=== PATIENT | female | born 1995 | race Caucasian/White ===

== ENCOUNTER 2020-10-29 11:30 | Outpatient (CLI) | payer OTHER, SELFPAY | END 2020-10-29 11:31 | disposition home or self-care (01) | PROVIDERS: PCP Family Medicine; Visit Provider Physician Assistant | DX: N92.6 Irregular menstruation, unspecified (principal) | CPT/HCPCS: 36415; 84702 ==

== ENCOUNTER 2021-06-08 21:48 | Observation (INO) | payer OTHER, SELFPAY ==
--- NOTE | 2021-06-08 21:48 | PC.NURSE ---
This patient, Nikia Danielle, admitted to the OB room [facility] Post [facility] for observation. Patient/family oriented to hospital policies and general routines including ID bracelet, bed and alarms, visiting hours, pain management, procedures, bathroom and other care routines, personal items, smoking policy, room service/diet, and visiting hours. Patient/Family are encouraged to report perceived risks to care and to ask questions if they do not understand what they are told or what they should do.
[2021-06-08 21:58] VITALS: BP 137/97; PULSE 129
[2021-06-08 22:00] VITALS: BP 143/79; PULSE 128; BMI 31.7
--- NOTE | 2021-06-08 22:00 | PC.NURSE ---
Pt is 37 4/7 weeks. Pt states she has been vomiting all day today and has had fever throughout evening. States temp as been as high as 101. Pt denies pain. States has also had diarrhea. States baby is moving. No contractions.
[2021-06-08 22:15] VITALS: BP 131/67; PULSE 115
[2021-06-08 22:45] VITALS: BP 137/64; PULSE 111
[2021-06-08] MEDS: DEXTROSE 5%/LACTATED RINGERS 1,000 ML 999 ML IV CONT (22:47)
[2021-06-08] MEDS: FAMOTIDINE 20 MG/2 ML VIAL IV PUSH (22:48)
[2021-06-08] MEDS: ONDANSETRON INJ 4 MG/2 ML VIAL IV PUSH (22:49)
[2021-06-08 22:55] VITALS: TEMP 37.4
[2021-06-08 23:00] VITALS: BP 138/55; PULSE 103
--- NOTE | 2021-06-08 23:15 | PC.NURSE ---
Pt states she is feeling better. No further vomiting.
[2021-06-08 23:19] LABS: Basophils Percent Auto 0.2 % (0.2-1.2); Hematocrit 28.7 % (37.0-47.0); Hemoglobin 9.6 g/dL (12.0-15.0); Immature Granulocyte Absolute 0.11 K/mm3 (0.00-0.031); Immature Granulocyte Percent A 0.9 % (0-0.5); Lymphocytes Absolute Auto 1.27 K/mm3 (0.9-3.2); Lymphocytes Percent Auto 9.8 % (18.3-44.2); Mean Corpuscular HGB Conc 33.4 g/dl (32-36); Mean Corpuscular Hemoglobin 31.5 pg (26-34); Mean Corpuscular Volume 94.1 fl (80-100); Mean Platelet Volume 12.5 fl (7.4-10.4); Monocytes Percent Auto 7.9 % (2.6-8.5); Neutrophils Absolute Auto 10.5 K/mm3 (1.3-6.7); Neutrophils Percent Auto 81.2 % (45.5-73.1); Platelet Count Result 197 k/mm3 (150-375); Red Blood Count 3.05 M/mm3 (4.2-5.4); Red Cell Distribution Width 12.2 % (11.5-14.5); White Blood Count 12.9 K/mm3 (4.5-10.0)
[2021-06-08 23:34] LABS: Alanine Aminotransferase 9 U/L (4-35); Albumin Level 3.2 g/dL (3.5-5.1); Alkaline Phosphatase 184 U/L (38-126); Anion Gap 8 mmol/L (8-16); Aspartate Amino Transferase 20 U/L (14-36); Bilirubin,Total 0.5 mg/dL (0.2-1.3); Calcium 8.5 mg/dL (8.4-10.2); Carbon Dioxide 21 mmol/L (22-30); Chloride 105 mmol/L (98-107); Estimated Glomerular Filt Rate > 60; Glucose 79 mg/dL (65-105); Potassium 2.7 mmol/L (3.4-5.0); Sodium 134 mmol/L (137-145)
[2021-06-08 23:35] LABS: Blood Urea Nitrogen < 2 mg/dL (7-17)
--- NOTE | 2021-06-08 23:37 | PC.NURSE ---
Lab work including Postasium of 2.7 called to Yanci Muñoz CNM. Orders received.
[2021-06-09] MEDS: DEXTROSE 5%/LACTATED RINGERS 1,000 ML 150 ML IV CONT
[2021-06-09 00:03] VITALS: BP 91/69; PULSE 95
[2021-06-09 00:05] VITALS: TEMP 36.6
[2021-06-09 03:04] VITALS: BP 113/52; PULSE 84
[2021-06-09 03:16] VITALS: TEMP 36.1
[2021-06-09 06:15] LABS: Alanine Aminotransferase 8 U/L (4-35); Albumin Level 2.8 g/dL (3.5-5.1); Alkaline Phosphatase 153 U/L (38-126); Anion Gap 5 mmol/L (8-16); Aspartate Amino Transferase 17 U/L (14-36); Bilirubin,Total 0.3 mg/dL (0.2-1.3); Calcium 7.7 mg/dL (8.4-10.2); Carbon Dioxide 24 mmol/L (22-30); Chloride 108 mmol/L (98-107); Estimated CRCL calculation 144 ml/min; Estimated Glomerular Filt Rate > 60; Glucose 93 mg/dL (65-105); Sodium 137 mmol/L (137-145)
[2021-06-09 06:29] VITALS: BP 113/55; PULSE 79
[2021-06-09 06:30] VITALS: RESP 16; TEMP 36.1
[2021-06-09 06:46] LABS: Blood Urea Nitrogen < 2 mg/dL (7-17)
[2021-06-09 07:32] LABS: Add Urine Microscopic? NO; Appearance Urine Clear (Clear); Bilirubin Urine Negative (Negative); Blood Urine Negative (Negative); Color Urine Straw (Yellow); Glucose Urine UA Negative (Negative); Ketones Urine Negative (Negative); Leukocyte Esterase Ur Negative LEU/UL (NEGATIVE); Nitrate Urine Negative (Negative); Protein Urine Negative (Negative); Urobilinogen Urine Negative mg/dL (<2.0)
[2021-06-09 07:51] LABS: Specific Grav Ur 1.002 (1.001-1.035)
[2021-06-09] MEDS: POTASSIUM CHLORIDE 20 MEQ TABLET PO (09:50)
--- NOTE | 2021-06-11 21:19 | P.PNOB_ITS ---
OB - Triage/Final Diagnosis Visit Information Date of evaluation: 06/08/21 Reason for evaluation: other (vomiting) Comments/Additional reasons for admission: I have assessed the risk for this patient, Nikia Danielle, and determined that she would benefit from observation care. Evaluation Laboratory results: Laboratory Tests 06/08/21 06/08/21 06/09/21 22:59 22:59 05:57 WBC 12.9 H RBC 3.05 L Hgb 9.6 L Hct 28.7 L MCV 94.1 MCH 31.5 MCHC 33.4 RDW 12.2 Plt Count 197 MPV 12.5 H Immature Gran % (Auto) 0.9 H Neut % (Auto) 81.2 H Lymph % (Auto) 9.8 L [place] % (Auto) 7.9 Eos % (Auto) 0.0 Baso % (Auto) 0.2 Lymph # (Auto) 1.27 [place] # (Auto) 1.0 H Eos # (Auto) 0.0 Baso # (Auto) 0.0 Abs Immat Gran (auto) 0.11 H Absolute Neuts (auto) 10.5 H Absolute Nucleated RBC 0.0 Nucleated RBC % 0.0 Sodium 134 L 137 Potassium 2.7 L* 3.0 L Chloride 105 108 H Carbon Dioxide 21 L 24 Anion Gap 8 5 L BUN < 2 L < 2 L Creatinine 0.60 L 0.60 L Estim Creat Clear Calc Not Reportable 144 Estimated GFR > 60 > 60 Glucose 79 93 Calcium 8.5 7.7 L Total Bilirubin 0.5 0.3 AST 20 17 ALT 9 8 Alkaline Phosphatase 184 H 153 H Total Protein 6.0 L 5.0 L Albumin 3.2 L 2.8 L Urine Color Urine Appearance Urine pH Ur Specific [place] Urine Protein Urine Glucose (UA) Urine Ketones Ur Blood (Man) Urine Nitrate Urine Bilirubin Urine Urobilinogen Ur Leukocyte Esterase 06/09/21 07:20 WBC RBC Hgb Hct MCV MCH MCHC RDW Plt Count MPV Immature Gran % (Auto) Neut % (Auto) Lymph % (Auto) [place] % (Auto) Eos % (Auto) Baso % (Auto) Lymph # (Auto) [place] # (Auto) Eos # (Auto) Baso # (Auto) Abs Immat Gran (auto) Absolute Neuts (auto) Absolute Nucleated RBC Nucleated RBC % Sodium Potassium Chloride Carbon Dioxide Anion Gap BUN Creatinine Estim Creat Clear Calc Estimated GFR Glucose Calcium Total Bilirubin AST ALT Alkaline Phosphatase Total Protein Albumin Urine Color Straw Urine Appearance Clear Urine pH 8.0 Ur Specific [place] 1.002 Urine Protein Negative Urine Glucose (UA) Negative Urine Ketones Negative Ur Blood (Man) Negative Urine Nitrate Negative Urine Bilirubin Negative Urine Urobilinogen Negative Ur Leukocyte Esterase Negative
== END 2021-06-09 10:08 | disposition home or self-care (01) ==
PROVIDERS: Advanced Practice Midwife; Admitting Provider Obstetrics & Gynecology; PCP Family Medicine; Visit Provider Obstetrics & Gynecology
DX: O21.0 Mild hyperemesis gravidarum (principal); Z3A.37 37 weeks gestation of pregnancy
CPT/HCPCS: 36415; 80053; 81003; 85025; 87086; 96361; 96365; 96366; 96374; 96375; A9270; G0378; G0379; J0131; J2405; J3480; J7060; J7121

== ENCOUNTER 2021-06-24 22:00 | Inpatient (IN) | payer OTHER, SELFPAY ==
[2021-06-24] VITALS (7 sets, daily range): BP systolic 121–145; BP diastolic 69–94; PULSE 88–103; BMI 32.1
[2021-06-24] MEDS: DINOPROSTONE 10 MG VAG INSERT VAGINAL (22:42)
[2021-06-24 22:51] LABS: Basophils Percent Auto 0.2 % (0.2-1.2); Eosinophils Percent Auto 0.3 % (0-4.4); Hematocrit 28.7 % (37.0-47.0); Hemoglobin 9.8 g/dL (12.0-15.0); Immature Granulocyte Absolute 0.07 K/mm3 (0.00-0.031); Immature Granulocyte Percent A 0.6 % (0-0.5); Lymphocytes Absolute Auto 2.18 K/mm3 (0.9-3.2); Lymphocytes Percent Auto 19.1 % (18.3-44.2); Mean Corpuscular HGB Conc 34.1 g/dl (32-36); Mean Corpuscular Volume 90.8 fl (80-100); Mean Platelet Volume 12.4 fl (7.4-10.4); Monocytes Percent Auto 8.3 % (2.6-8.5); Neutrophils Absolute Auto 8.2 K/mm3 (1.3-6.7); Neutrophils Percent Auto 71.5 % (45.5-73.1); Platelet Count Result 224 k/mm3 (150-375); Red Blood Count 3.16 M/mm3 (4.2-5.4); Red Cell Distribution Width 12.4 % (11.5-14.5); White Blood Count 11.4 K/mm3 (4.5-10.0)
--- NOTE | 2021-06-24 22:58 | LDADM ---
This patient, Nikia Danielle, was admitted to Labor/Delivery/Recovery 108 on 06/24/21 at 22:00. Plans for labor, pain management and were discussed with patient. Patient/family oriented to hospital policies and general routines including ID bracelet, bed and alarms, visiting hours, pain management, procedures, bathroom and other care routines, personal items, smoking policy, room service/diet and guest tray routines, security routines, and visiting hours. Patient/Family are encouraged to report perceived risks to care and to ask questions if they do not understand what they are told or what they should do. See OBIX for further documentation.
[2021-06-25] VITALS (129 sets, daily range): BP systolic 69–156; BP diastolic 32–115; PULSE 64–164; RESP 16–18; TEMP 36.4–36.9; O2SAT 88–100
[2021-06-25 07:01] LABS: Rapid Plasma Reagin Non-Reactive (NonReactive)
--- NOTE | 2021-06-25 07:13 | WPDANESEPP ---
Anes - Eval Pre Procedure Procedure: labor epidural Date/Time: 06/25/21 07:13 Surgeon: josephine Preop Diagnosis: pain during labor Pre Op Diagnosis: Induction of Labor Patient Data Age: 25 Gender: F Height: 1.7 m Weight: 93 kg Last Vital Signs Pulse 83 06/25/21 05:48 BP 130/81 06/25/21 05:48 Allergies Allergy/AdvReac Type Severity Reaction Status Date / Time No Known Allergies Allergy Unverified 10/29/20 11:00 Home Medications Medication Instructions Recorded Confirmed Type PNV no.[id number] acid 1 tablet PO DAILY 06/09/21 06/24/21 History Laboratory Tests 06/24/21 06/24/21 06/24/21 22:41 22:41 22:41 WBC 11.4 K/mm3 H K/mm3 (4.5-10.0) RBC 3.16 M/mm3 L M/mm3 (4.2-5.4) Hgb 9.8 g/dL L g/dL (12.0-15.0) Hct 28.7 % L % (37.0-47.0) MCV 90.8 fl fl (80-100) MCH 31.0 pg pg (26-34) MCHC 34.1 g/dl g/dl (32-36) RDW 12.4 % % (11.5-14.5) Plt Count 224 k/mm3 k/mm3 (150-375) MPV 12.4 fl H fl (7.4-10.4) Immature Gran % (Auto) 0.6 % H % (0-0.5) Neut % (Auto) 71.5 % % (45.5-73.1) Lymph % (Auto) 19.1 % % (18.3-44.2) [place] % (Auto) 8.3 % % (2.6-8.5) Eos % (Auto) 0.3 % % (0-4.4) Baso % (Auto) 0.2 % % (0.2-1.2) Lymph # (Auto) 2.18 K/mm3 K/mm3 (0.9-3.2) [place] # (Auto) 1.0 K/mm3 H K/mm3 (0.1-0.6) Eos # (Auto) 0.0 K/mm3 K/mm3 (0-0.3) Baso # (Auto) 0.0 K/mm3 K/mm3 (0.0-0.1) Abs Immat Gran (auto) 0.07 K/mm3 H K/mm3 (0.00-0.031) Absolute Neuts (auto) 8.2 K/mm3 H K/mm3 (1.3-6.7) Absolute Nucleated RBC 0.0 K/mm3 K/mm3 (0.0-0.012) Nucleated RBC % 0.0 % % (0.0-0.2) RPR Non-reactive (NonReactive) Blood Type O Positive Antibody Screen Negative Patient hx anesthesia problems: none Family hx anesthesia problems: none [facility] Family History Family History Father Family history of mental disorder Depression Grandparent Family history of malignant neoplasm of cervix Family history of lung cancer Family history of malignant neoplasm of ovary Mother Family history of malignant neoplasm of cervix Family history of malignant neoplasm of ovary Social History Social History (Updated 10/29/20 @ 11:01 by Kassie Monzon CMA) Years smoked: 5 Smoking status: Former smoker Tobacco type: cigarettes Second hand tobacco smoke exposure: No Smoking end date: 06/24/21 Alcohol intake: current Alcohol use details: 5 drinks in a month Substance use: never Substance use type: does not use Additional living arrangements comments: lives w/ boyfriend Gender identity (if verbalized by the patient): Female Spiritual care concerns: No Exam Day of Procedure 06/25/21 07:13
--- NOTE | 2021-06-25 07:27 | WPDOBADMIT ---
Obstetrics - Admit Note Admission Note: record reviewed. No pertinent additions to the history and/or any subsequent changes in the physical findings that are not consistent with the expected course of the were found.IOL cervadil, start antibiotics for GBS with pitocin Additions to the history and/or subsequent changes in the physical findings follow. None.
[2021-06-25] MEDS: LACTATED RINGERS 1,000 ML 125 ML IV CONT ×2 (11:22→19:34)
[2021-06-25] MEDS: OXYTOCIN 30 UNITS/NS 500 ML 30 UNITS/500 ML BAG IV CONT (11:22)
[2021-06-25] MEDS: AMPICILLIN 2 GM/NS 100 ML 2 GM/100 ML BAG IVPB (11:22)
[2021-06-25] MEDS: AMPICILLIN 1 GM/NS 50 ML 1 GM/50 ML BAG IVPB ×3 (16:17→23:36)
--- NOTE | 2021-06-25 17:59 | PM.OBPNVD ---
OB - PN: Subj Subjective Date/time seen: 06/25/21 17:59 SVE 1-2/70/-2 AROM large amount of clear odorless fluid, anticipate vaginal delivery OB - PN: Obj Data Labs CBC & Chem 7: 06/24/21 22:41 Labs: Laboratory Results - last 24 hr 06/24/21 06/24/21 06/24/21 22:41 22:41 22:41 WBC 11.4 H RBC 3.16 L Hgb 9.8 L Hct 28.7 L MCV 90.8 MCH 31.0 MCHC 34.1 RDW 12.4 Plt Count 224 MPV 12.4 H Immature Gran % (Auto) 0.6 H Neut % (Auto) 71.5 Lymph % (Auto) 19.1 [place] % (Auto) 8.3 Eos % (Auto) 0.3 Baso % (Auto) 0.2 Lymph # (Auto) 2.18 [place] # (Auto) 1.0 H Eos # (Auto) 0.0 Baso # (Auto) 0.0 Abs Immat Gran (auto) 0.07 H Absolute Neuts (auto) 8.2 H Absolute Nucleated RBC 0.0 Nucleated RBC % 0.0 RPR Non-reactive Blood Type O Positive Antibody Screen Negative OB - PN A/P Time Spent With Patient Time: Total time spent is greater than 50% in coordination of care (as documented) at patient's floor/unit and/or counseling patient:
[2021-06-25] MEDS: TERBUTALINE SULFATE 1 MG/ML VIAL 0.25 MG SUB-Q (18:10)
[2021-06-25] MEDS: ONDANSETRON INJ 4 MG/2 ML VIAL IV PUSH (19:06)
--- NOTE | 2021-06-25 19:07 | WPDANESEFPP ---
Anes - Eval Final PreProcedure Day of Procedure 06/25/21 19:07 Patient weight: obese Heart: regular rate and rhythm Lungs: clear to auscultation Neurological: alert and oriented ASA classification: II Emergent: no Anesthetic plan: proceed Anesthesia type and monitoring: regional epidural and standard monitoring Informed Consent: The patient's anesthetic plan and its attendant risks and benefits were discussed with the patient/family/POA. Questions were solicited and answers provided to the satisfaction of the patient/family/POA.
[2021-06-26] VITALS (79 sets, daily range): BP systolic 102–142; BP diastolic 41–103; PULSE 34–142; RESP 16–18; TEMP 36.3–37.3; O2SAT 79–100
[2021-06-26] MEDS: LORATADINE 10 MG TABLET PO ×2 (02:38→19:52)
[2021-06-26] MEDS: SODIUM CHLORIDE 0.9% IV 300 ML 600 ML I-UTERINE (03:58)
[2021-06-26] MEDS: AMPICILLIN 1 GM/NS 50 ML 1 GM/50 ML BAG IVPB (04:00)
[2021-06-26] MEDS: TERBUTALINE SULFATE 1 MG/ML VIAL 0.25 MG SUB-Q (04:11)
--- NOTE | 2021-06-26 04:56 | PM.IMHP ---
H&P: HPI History of Present Illness Date/Time: 06/26/21 04:56 pt laboring and deceleration noted, CNM at bs and terbutaline given, heart tones remain unstable and dr burton called for emergency . complicated by positive GBS and has had adequate treatment Chief Complaint: decelerations Review of Systems Review of Systems: All systems reviewed & are unremarkable except as noted in HPI and below PMFSH Family History Family History Father Family history of mental disorder Depression Grandparent Family history of malignant neoplasm of cervix Family history of lung cancer Family history of malignant neoplasm of ovary Mother Family history of malignant neoplasm of cervix Family history of malignant neoplasm of ovary Social History Social History (Updated 10/29/20 @ 11:01 by Kassie Monzon [facility]) Years smoked: 5 Smoking status: Former smoker Tobacco type: cigarettes Second hand tobacco smoke exposure: No Smoking end date: 06/24/21 Alcohol intake: current Alcohol use details: 5 drinks in a month Substance use: never Substance use type: does not use Additional living arrangements comments: lives w/ boyfriend Gender identity (if verbalized by the patient): Female Spiritual care concerns: No Meds Home Medications and Allergies Home Medications Medication Instructions Recorded Confirmed Type PNV no.80-bomi-nyypa acid 1 tablet PO DAILY 06/09/21 06/24/21 History Allergies Allergy/AdvReac Type Severity Reaction Status Date / Time No Known Allergies Allergy Unverified 10/29/20 11:00 Vital Signs Vital Signs - 24 hr 06/25/21 05:48 06/25/21 11:24 06/25/21 11:32 Temperature 36.4 C Pulse Rate 83 77 Respiratory Rate Blood Pressure 130/81 114/99 H Pulse Oximetry 06/25/21 11:45 06/25/21 12:00 06/25/21 12:15 Temperature Pulse Rate 64 68 67 Respiratory Rate Blood Pressure 131/82 119/77 120/77 Pulse Oximetry 06/25/21 12:30 06/25/21 12:45 06/25/21 13:00 Temperature Pulse Rate 68 71 69 Respiratory Rate Blood Pressure 125/76 122/79 127/76 Pulse Oximetry 06/25/21 13:15 06/25/21 13:30 06/25/21 16:03 Temperature Pulse Rate 69 69 101 H Respiratory Rate Blood Pressure 128/75 126/75 141/115 H Pulse Oximetry 06/25/21 16:05 06/25/21 16:18 06/25/21 16:30 Temperature 36.6 C Pulse Rate 78 78 Respiratory Rate Blood Pressure 124/67 125/69 Pulse Oximetry 06/25/21 17:00 06/25/21 17:30 06/25/21 18:00 Temperature Pulse Rate 89 76 79 Respiratory Rate Blood Pressure 122/76 130/74 138/77 Pulse Oximetry 06/25/21 18:30 06/25/21 18:48 06/25/21 18:49 Temperature 36.9 C Pulse Rate 94 111 H Respiratory Rate 18 Blood Pressure 137/63 144/76 H Pulse Oximetry 100 06/25/21 18:53 06/25/21 18:54 06/25/21 18:55 Temperature Pulse Rate 96 103 H Respiratory Rate Blood Pressure 155/79 H 156/70 H Pulse Oximetry 100 06/25/21 18:57 06/25/21 18:58 06/25/21 19:00 Temperature Pulse Rate 100 102 H 111 H Respiratory Rate Blood Pressure 147/64 H 136/68 135/69 Pulse Oximetry 100 06/25/21 19:02 06/25/21 19:03 06/25/21 19:04 Temperature Pulse Rate 115 H 112 H Respiratory Rate Blood Pressure 126/47 L 119/46 L Pulse Oximetry 100 06/25/21 19:06 06/25/21 19:08 06/25/21 19:10 Temperature Pulse Rate 100 108 H 90 Respiratory Rate Blood Pressure 115/42 L 101/53 L 121/55 L Pulse Oximetry 100 06/25/21 19:12 06/25/21 19:13 06/25/21 19:14 Temperature Pulse Rate 88 99 Respiratory Rate Blood Pressure 127/60 112/63 Pulse Oximetry 100 06/25/21 19:16 06/25/21 19:18 06/25/21 19:19 Temperature Pulse Rate 89 Respiratory Rate Blood Pressure 120/62 Pulse Oximetry 100 96 06/25/21 19:21 06/25/21 19:22 06/25/21 19:23 Temperature Pulse Rate 98 100
--- NOTE | 2021-06-26 05:18 | P.OP_ITS ---
Procedure Note - Detailed Date of Procedure 06/26/21 Pre-op Diagnosis Induction of Labor, Nonreassuring FHT's Post-op Diagnosis same Procedure Performed Low-transverse section Surgeon Anusha Braxton MD Anesthesia spinal Indications Distress Findings Normal gestational maternal anatomy, average size , normal Apgars. Meconium Description of Procedure The patient was taken the operating room. She was prepped and draped in dorsal supine position with a leftward tilt. This was done after spinal anesthetic was applied. A low-transverse skin incision was made and carried down till of the fascia with the knife. The fascial incision was made with the knife. The fascial incision was extended laterally with Link scissors. The fascia was tented upward superiorly and inferiorly the rectus muscles were dissected off bluntly. The rectus muscles were the midline. The preperitoneal fat and peritoneum were dissected open bluntly at the superior aspect of the rectus muscles. The peritoneal incision was extended superior and inferior with good position of bladder. The uterine incision was made with a scalpel down to the level of the amniotic cavity. The amniotic cavity was entered bluntly. The was delivered. The cord was clamped and cut and the infant was handed off to waiting pediatric staff. Cord bloods were obtained. The placenta was removed manually. The uterus was exteriorized. The uterus was cleared of all clots, debris and membranes. The uterus was closed in 0 Vicryl running lock fashion. An imbricating over a was placed along the incis ion line as well. The uterus was returned to the abdomen. The gutters were cleared of all clots and debris. The fascia was closed with 0 Vicryl running fashion. The subcutaneous tissue was irrigated pinpoint bleeders were cauterized. The skin was closed with subcuticular absorbable monica. The skin incision line was covered with glue. The patient tolerated the procedure well. She has taken recovery room in stable condition. Sponge lap and needle counts were correct x2. Urine Output 790 Pathology yes Complications No immediate complications Condition stable Disposition PACU
--- NOTE | 2021-06-26 05:25 | PM.IMHP ---
H&P: HPI History of Present Illness Date/Time: 06/26/21 05:25This patient is a 26 year old female prior labored until she was complete. The and then she began to have nonreassuring heart tones. She had a prolonged D cell was taken to the operating room for stat delivery. Chief Complaint: Term Review of Systems Constitutional: Constitutional: Reports no additional constitutional complaints, Denies fatigue, Denies headache(s), Denies lethargy and Denies weakness Eyes: Eyes: Reports no additional eye complaints, Denies blurry vision and Denies photophobia ENT: Reports as per HPI, Denies headache(s) and Denies neck pain Cardiovascular: Cardiovascular: Denies chest pain, Denies diaphoresis, Denies leg edema, Denies palpitations and Denies dyspnea Respiratory: Respiratory: Denies hemoptysis, Denies dyspnea and Denies wheezing Gastrointestinal: Gastrointestinal: Denies abdominal pain, Denies melena, Denies bloating, Denies hematochezia, Denies nausea and Denies vomiting Genitourinary: Genitourinary: Reports no additional female genitourinary complaints Musculoskeletal: Musculoskeletal: Denies joint swelling, Denies neck pain, Denies numbness and Denies stiffness Neurologic: Denies Abnormal speech present, Denies confusion, Denies headache(s), Denies numbness and Denies weakness Psychiatric: Psychiatric: Denies anxiety, Denies confusion, Denies depression, Denies homicidal ideation and Denies suicidal ideation Endocrine: Endocrine: Denies fatigue and Denies palpitations Allergic/Immunologic: Allergic/Immunologic: Denies wheezing [facility] Family History Family History Father Family history of mental disorder Depression Grandparent Family history of malignant neoplasm of cervix Family history of lung cancer Family history of malignant neoplasm of ovary Mother Family history of malignant neoplasm of cervix Family history of malignant neoplasm of ovary Social History Social History (Updated 10/29/20 @ 11:01 by Kassie Monzon CMA) Years smoked: 5 Smoking status: Former smoker Tobacco type: cigarettes Second hand tobacco smoke exposure: No Smoking end date: 06/24/21 Alcohol intake: current Alcohol use details: 5 drinks in a month Substance use: never Substance use type: does not use Additional living arrangements comments: lives w/ boyfriend Gender identity (if verbalized by the patient): Female Spiritual care concerns: No Meds Home Medications and Allergies Home Medications Medication Instructions Recorded Confirmed Type PNV no.09-[id number] acid 1 tablet PO DAILY 06/09/21 06/24/21 History Allergies Allergy/AdvReac Type Severity Reaction Status Date / Time No Known Allergies Allergy Unverified 10/29/20 11:00 Vital Signs Vital Signs - 24 hr 06/25/21 05:48 06/25/21 11:24 06/25/21 11:32 Temperature 97.6 F Pulse Rate 83 77 Respiratory Rate Blood Pressure 130/81 114/99 H Pulse Oximetry 06/25/21 11:45 06/25/21 12:00 06/25/21 12:15 Temperature Pulse Rate 64 68 67 Respiratory Rate Blood Pressure 131/82 119/77 120/77 Pulse Oximetry 06/25/21 12:30 06/25/21 12:45 06/25/21 13:00 Temperature Pulse Rate 68 71 69 Respiratory Rate Blood Pressure 125/76 122/79 127/76 Pulse Oximetry 06/25/21 13:15 06/25/21 13:30 06/25/21 16:03 Temperature Pulse Rate 69 69 101 H Respiratory Rate Blood Pressure 128/75 126/75 141/115 H Pulse Oximetry 06/25/21 16:05 06/25/21 16:18 06/25/21 16:30 Temperature 98 F Pulse Rate 78 78 Respiratory Rate Blood Pressure 124/67 125/69 Pulse Oximetry 06/25/21 17:00 06/25/21 17:30 06/25/21 18:00 Temperature Pulse Rate 89 76 79 Respiratory Rate Blood Pressure 122/76 130/74 138/77 Pulse Oximetry 06/25/21 18:30 06/25/21 18:48 06/25/21 18:49 Temperature 98.4 F Pulse Rate 94 111
[2021-06-26] MEDS: fentaNYL CITRATE INJ (*CRX) 100 MCG/2 ML VIAL 25 MCG IV PUSH (05:59)
[2021-06-26] MEDS: OXYTOCIN 30 UNITS/NS 500 ML 30 UNITS/500 ML BAG 125 UNITS IV CONT (05:59)
[2021-06-26] MEDS: DEXTROSE 5%/0.45% SOD CHL 1,000 ML 125 ML IV CONT (10:25)
--- NOTE | 2021-06-26 10:55 | PC.NURSE ---
Consult with pt., mother reports she wishes to pump and bottle feed. Offered assist mother will call when ready.
--- NOTE | 2021-06-26 15:46 | PC.NURSE ---
0805 Pt admitted to room 288 from Labor and delivery after primary delivery of viable male infant today at [address] Braxton. Mother is a and is choosing to pump and bottle feed . FOB present. Couple oriented to room, staffing and procedures; admission folder reviewed. Pt's VSS and assessment WNL.
[2021-06-26] MEDS: POLYSACCHARIDE IRON COMPLEX 150 MG CAPSULE PO (17:56)
[2021-06-26] MEDS: DOCUSATE SODIUM 100 MG CAPSULE PO (17:56)
--- NOTE | 2021-06-26 19:34 | PC.NURSE ---
1800 pt given Nubain 2mg IVP twice today for c/o itching with good relief reported.
[2021-06-26] MEDS: HYDROcodone/acetaminophen (*CRX) 5-325 MG TABLET 1 TAB PO (19:52)
[2021-06-26] MEDS: IBUPROFEN 600 MG TABLET PO (19:52)
[2021-06-27] VITALS: BP 114/63; PULSE 89; RESP 16; TEMP 36.2; O2SAT 99
[2021-06-27 05:20] LABS: Basophils Percent Auto 0.3 % (0.2-1.2); Eosinophils Percent Auto 0.2 % (0-4.4); Hematocrit 23.7 % (37.0-47.0); Hemoglobin 7.6 g/dL (12.0-15.0); Immature Granulocyte Absolute 0.08 K/mm3 (0.00-0.031); Immature Granulocyte Percent A 0.6 % (0-0.5); Lymphocytes Percent Auto 17.2 % (18.3-44.2); Mean Corpuscular HGB Conc 32.1 g/dl (32-36); Mean Corpuscular Hemoglobin 30.9 pg (26-34); Mean Corpuscular Volume 96.3 fl (80-100); Mean Platelet Volume 12.3 fl (7.4-10.4); Monocytes Absolute Auto 1.2 K/mm3 (0.1-0.6); Neutrophils Absolute Auto 9.7 K/mm3 (1.3-6.7); Neutrophils Percent Auto 72.7 % (45.5-73.1); Platelet Count Result 208 k/mm3 (150-375); Red Blood Count 2.46 M/mm3 (4.2-5.4); Red Cell Distribution Width 12.8 % (11.5-14.5); White Blood Count 13.3 K/mm3 (4.5-10.0)
--- NOTE | 2021-06-27 07:38 | P.PNOB_ITS ---
OB - PN: Subj Subjective Date/time seen: 06/27/21 07:38 Patient comments: no complaints baby status: doing well OB - PN: Obj Data Labs CBC & Chem 7: 06/27/21 04:54 Labs: Laboratory Results - last 24 hr 06/27/21 04:54 WBC 13.3 H RBC 2.46 L Hgb 7.6 L Hct 23.7 L MCV 96.3 D MCH 30.9 MCHC 32.1 RDW 12.8 Plt Count 208 MPV 12.3 H Immature Gran % (Auto) 0.6 H Neut % (Auto) 72.7 Lymph % (Auto) 17.2 L [place] % (Auto) 9.0 H Eos % (Auto) 0.2 Baso % (Auto) 0.3 Lymph # (Auto) 2.30 [place] # (Auto) 1.2 H Eos # (Auto) 0.0 Baso # (Auto) 0.0 Abs Immat Gran (auto) 0.08 H Absolute Neuts (auto) 9.7 H Absolute Nucleated RBC 0.0 Nucleated RBC % 0.0 OB - PN A/P Plan day: 1 Plan: routine care Time Spent With Patient Time: Total time spent is greater than 50% in coordination of care (as documented) at patient's floor/unit and/or counseling patient: Review of Systems Review of Systems: All systems reviewed & are unremarkable except as noted in HPI and below Exam Narrative: Incision CDI Const: General: cooperative and healthy appearing Limitations: no limitations Psych: Affect: normal affect Attitude: cooperative Thought process: Normal thought process present Thought content: Yes Normal thought content pr esent Insight: Good insight present (Psych) Judgement: Good judgement present (Psych)
--- NOTE | 2021-06-27 08:11 | WPDANLDNPN2 ---
Anes-Prog Note L&D-Neuraxial Date/Time: 06/27/21 08:11 Neuraxial medications: epidural PF morphine Opiod-related complaints: none Patient feedback: Patient satisfied with post-operative pain management.
--- NOTE | 2021-06-27 08:12 | WPDANLDPN2 ---
Anes-Prog Note L&D Date/Time: 06/27/21 08:12 Comfortable throughout: labor, delivery and section Neuraxial method: epidural Epidural/Spinal procedure site: clean & non-tender Neuro status: Neuro function grossly intact. Cardiovascular status: normal Respiratory status: normal Airway patency: baseline Mental status: baseline Post-Op hydration status: normal Vital Signs: Last Vital Signs Temp 36.2 C L 06/27/21 00:00 Pulse 89 06/27/21 00:00 Resp 16 06/27/21 00:00 BP 114/63 06/27/21 00:00 Pulse Ox 99 06/27/21 00:00 Pain score (VAS): 0 I/O: Intake & Output 06/26/21 06/27/21 06/27/21 23:59 07:59 15:59 Intake Total 4175 Output Total 1500 Balance 2675 Post-procedural complaints: none Patient feedback: Patient satisfied with anesthetic care.
[2021-06-27 08:25] VITALS: BP 140/76; PULSE 101; RESP 16; TEMP 36.9; O2SAT 100
[2021-06-27] MEDS: IBUPROFEN 600 MG TABLET PO ×3 (10:05→23:22)
[2021-06-27] MEDS: MULTIVIT/MIN/PREN/FOL AC/IRON TABLET 1 TAB PO (10:05)
[2021-06-27] MEDS: POLYSACCHARIDE IRON COMPLEX 150 MG CAPSULE PO ×2 (10:06→16:27)
[2021-06-27] MEDS: HYDROcodone/acetaminophen (*CRX) 5-325 MG TABLET 1 TAB PO ×3 (10:06→23:22)
[2021-06-27] MEDS: DOCUSATE SODIUM 100 MG CAPSULE PO ×2 (10:06→16:28)
[2021-06-27] MEDS: TETANUS,DIPHTHERIA,AC PERTUSSIS ADULT (0.5 ML) BOOSTRIX IM (16:29)
[2021-06-27 20:15] VITALS: BP 130/83; PULSE 100; RESP 18; TEMP 36.4; O2SAT 100
--- NOTE | 2021-06-27 20:15 | PC.NURSE ---
Patient viewed the discharge video Mother & Baby Care, The First Two Weeks online. Patient was given the opportunity and encouraged to ask questions. Patient verbalized understanding of information shared and has been given the mother/baby guide for home reference.
[2021-06-27] MEDS: SIMETHICONE 80 MG TAB.CHEW PO (23:22)
[2021-06-28] MEDS: HYDROcodone/acetaminophen (*CRX) 5-325 MG TABLET 1 TAB PO ×2 (05:36→10:44)
[2021-06-28] MEDS: SIMETHICONE 80 MG TAB.CHEW PO ×2 (05:36→10:44)
[2021-06-28] MEDS: IBUPROFEN 600 MG TABLET PO (05:38)
[2021-06-28 06:01] LABS: Hematocrit 22.1 % (37.0-47.0); Hemoglobin 7.1 g/dL (12.0-15.0)
[2021-06-28 08:08] VITALS: BP 121/73; PULSE 95; RESP 18; TEMP 36.8
[2021-06-28] MEDS: MULTIVIT/MIN/PREN/FOL AC/IRON TABLET 1 TAB PO (10:43)
[2021-06-28] MEDS: POLYSACCHARIDE IRON COMPLEX 150 MG CAPSULE PO (10:43)
[2021-06-28] MEDS: DOCUSATE SODIUM 100 MG CAPSULE PO (10:44)
--- NOTE | 2021-06-28 12:55 | PM.OBPNVD ---
OB - PN: Subj Subjective Date/time seen: 06/28/21 12:55 Patient comments: no complaints, pain well controlled, tolerating diet and flatus present OB - PN: Obj Data Labs CBC & Chem 7: 06/28/21 05:44 Labs: Laboratory Results - last 24 hr 06/28/21 05:44 Hgb 7.1 L Hct 22.1 L OB - PN A/P Plan day: 1 Comments: Post Op LTCS - no problems, routine recovery Time Spent With Patient Time: Total time spent is greater than 50% in coordination of care (as documented) at patient's floor/unit and/or counseling patient: Exam Const: General: cooperative, healthy appearing, comfortable and no acute distress Resp: Auscultation: no crackles, no rales, no rhonchi and no wheezes Cardio: Rhythm: regular rhythm Heart sounds: no click and no murmurs GI: Inspection: non-distended Auscultation: normal bowel sounds Extrem: General: normal to inspection, no pedal edema and no calf tenderness
--- NOTE | 2021-06-28 12:56 | PM.OBDSVD ---
DS: Admitting Diagnosis Admitting Diagnosis term DS: Discharge Diagnosis Discharge Diagnosis (1) heart rate decelerations affecting management of mother: Code(s): O36.8390 - Maternal care for abnormalities of the heart rate or rhythm, unspecified trimester, not applicable or unspecified Status: Acute (2) Term : Code(s): Z34.90 - Encounter for supervision of normal , unspecified, unspecified trimester Status: Acute OB - DS: Summary OB Procedures : None OB Procedures Intrapartum: OB Procedures: : None Peripartum Data Procedures: Procedures Operation Date: 06/26/21 04:25 Actual Procedure Side Surgeon p Section Bilateral Anusha Braxton MD Time Spent with Patient Time attestation: Total time spent providing and/or coordinating discharge services: DS: Data Data Completed and Pending Pending studies at discharge: Pending at discharge 06/26/21 05:08 Surgical [PTH] Routine Labs on day of discharge: Labs from last 24 hours 06/28/21 05:44 Hgb 7.1 L Hct 22.1 L Discharge Plan Discharge Discharging Clinician: Anusha Braxton Patient Disposition: Home, Self-Care Activity: pelvic rest Diet: regular Patient Instructions: Antibiotic Form, How to Stop Smoking (DC) Stand Alone Forms: General Discharge Information Follow-up/Referrals: Anusha Braxton MD [Physician] - Discharge Medications: New hydrocodone-acetaminophen 5-325 mg tablet 1 - 2 tablet PO Q4H PRN (Reason: pain) Qty: 25 RF: 0 Continued PNV no.36-sydd-rqfuw acid 30-975 mg-mcg Tablet 1 tablet PO DAILY RF: 0 Date of admission: 06/24/21 22:00 Primary Care Provider: Megan Rock Admitting Provider: Anusha Braxton Attending physician on admission: Anusha Braxton Condition: Stable
[2021-06-30 10:01] VITALS: BP 130/76; PULSE 87; RESP 16; TEMP 36.8; O2SAT 99
== END 2021-06-28 13:57 | disposition home or self-care (01) | DRG 788 ==
LOC: ANHLDR 06-25 09:36 → ANHOB2 06-26 08:11
PROVIDERS: Advanced Practice Midwife; Admitting Provider Obstetrics & Gynecology; PCP Family Medicine; Visit Provider Obstetrics & Gynecology
PROC: (CPT 59514; principal; 2021-06-26 04:25)
DX: O99.824 Streptococcus B carrier state complicating childbirth (principal); Z37.0 Single live birth; Z3A.40 40 weeks gestation of pregnancy; O36.8330 Maternal care for abnormalities of the fetal heart rate or rhythm, third trimester, not applicable or unspecified; O77.0 Labor and delivery complicated by meconium in amniotic fluid; O99.214 Obesity complicating childbirth; E66.9 Obesity, unspecified
CPT/HCPCS: 36415; 85014; 85018; 85025; 86592; 86850; 86900; 86901; 88307; 90715; A9270; J0131; J0290; J0330; J0690; J2274; J2300; J2370; J2405; J2590; J2704; J3010; J3105; J7030; J7120

== ENCOUNTER 2022-01-28 11:00 | Emergency (ER) | payer OTHER, SELFPAY ==
[2022-01-28 11:20] VITALS: BP 100/60; PULSE 92; RESP 16; TEMP 36.1; O2SAT 99
--- NOTE | 2022-01-28 12:00 | ED.SKABFB ---
HPI - Skin/Abscess/Foreign Bdy General Chief complaint: Skin/Abscess/Foreign Body Stated complaint: Rash,Numbness Bilateral Hands Time Seen by Provider: 01/28/22 12:01 Source: patient Mode of arrival: ambulatory Limitations: no limitations History of Present Illness HPI narrative: 26-year-old female presented for complaint of rash to wrists, torso and hairline, onset 2 days ago. She states the rash flares up and comes down. She has used an [id number] itching cream. Endorses a history of sensitive skin and has similar experiences in the past but not as bad as this 1. She endorses changing laundry soap recently which has caused skin reaction in the past. She denies lip, tongue, throat swelling, difficulty breathing or wheezing, nausea, vomiting, fever or chills. She does endorse bilateral wrist numbness radiating to the hands intermittently since onset. Also endorses having carpal tunnel during . Denies numbness presently. She has a appointment with her PCP tomorrow. MD complaint: rash Related Data Allergies Allergy/AdvReac Type Severity Reaction Status Date / Time No Known Allergies Allergy Verified 01/28/22 11:33 Review of Systems Review of Systems: CONSTITUTIONAL: Denies body aches, fever, chills, or sweats. EYES: Denies visual changes, redness, or discharge. ENT: Denies rhinorrhea, congestion, sore throat, or otalgia. CARDIOVASCULAR: Denies chest pain, palpitations, or edema. RESPIRATORY: Denies cough or dyspnea. GASTROINTESTINAL: Denies abdominal pain, nausea, vomiting, or diarrhea. GENITOURINARY: Denies dysuria or hematuria. SKIN: endorses rash MUSCULOSKELETAL: Denies back pain, joint pain, or myalgia. NEUROLOGIC: endorses wrist/hand numbness PSYCH: Denies depression or anxiety. [facility] Family History Family History Father Family history of mental disorder Depression Grandparent Family history of malignant neoplasm of cervix Family history of lung cancer Family history of malignant neoplasm of ovary Mother Family history of malignant neoplasm of cervix Family history of malignant neoplasm of ovary Social History Social History Years smoked: 5 Smoking status: Former smoker Tobacco type: cigarettes Second hand tobacco smoke exposure: No Smoking end date: 06/24/21 Alcohol intake: current Alcohol use details: 5 drinks in a month Substance use: never Substance use type: does not use Additional living arrangements comments: lives w/ boyfriend Gender identity (if verbalized by the patient): Female Spiritual care concerns: No Comments At time of signature, I have reviewed and agree with nursing past medical, surgical, social and family history unless otherwise noted. Please see nursing chart for further information. There is no relevant family history pertinent to the presenting complaint Exam Narrative: GENERAL: Well-appearing, well-nourished, and in no acute distress. HEAD: Normocephalic, atraumatic. EYES: PERRLA, conjunctivae clear, and EOMI. ENT: Mucous membranes moist. Oropharynx without edema, erythema or lesions. NECK: Supple. No lymphadenopathy CHEST: Clear to auscultation. No respiratory distress. HEART: Regular rate and rhythm. SKIN: Warm, dry. 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 PSYCH: Normal mood and affect Course Course Emergency Course: Patient is aware of diagnosis, understands and agrees to treatment plan. Anticipatory guidance given. Patient agrees to follow-up as directed and is aware of reasons to seek care at the emergency department. Portions of this record may have been created with voice recognition software Level of Care: Express Car
== END 2022-01-28 12:22 | disposition home or self-care (01) ==
PROVIDERS: Emergency Provider Nurse Practitioner Family; PCP Family Medicine
DX: L25.9 Unspecified contact dermatitis, unspecified cause (principal); Z87.891 Personal history of nicotine dependence
CPT/HCPCS: 99213; G0463

== ENCOUNTER 2024-04-22 18:47 | Emergency (ER) | payer OTHER, SELFPAY ==
[2024-04-22 18:56] VITALS: BP 119/63; PULSE 90; RESP 18; TEMP 37.2; O2SAT 100
[2024-04-22 18:58] VITALS: BP 119/63; PULSE 90; RESP 18; TEMP 37.2; O2SAT 100
--- NOTE | 2024-04-22 19:12 | ED.DENTAL ---
HPI - Dental/Oral General Chief complaint: Dental/Oral Stated complaint: Tooth Pain/Infection Time Seen by Provider: 04/22/24 19:03 Source: patient and RN notes reviewed Mode of arrival: ambulatory Limitations: no limitations History of Present Illness HPI Narrative: Patient presents today complaining of pain to the upper gumline x2 days, with an abscess that was noted by patient's mother today. States she woke up with swelling to the right upper jaw line today as well. Currently rates her pain 8/10 and has been taking ibuprofen with mild relief. She has an appointment with an emergency dentist in 3 days. Related Data Allergies Allergy/AdvReac Type Severity Reaction Status Date / Time No Known Allergies Allergy Verified 04/22/24 18:57 Review of Systems Review of Systems: CONSTITUTIONAL: Denies body aches, fever, chills, or sweats. EYES: Denies visual changes, redness, or discharge. ENT: Denies rhinorrhea, congestion, sore throat, or otalgia.+ tooth pain and gum swelling CARDIOVASCULAR: Denies chest pain, palpitations, or edema. RESPIRATORY: Denies cough or dyspnea. GASTROINTESTINAL: Denies abdominal pain, nausea, vomiting, or diarrhea. GENITOURINARY: Denies dysuria or hematuria. SKIN: Denies rash, itching, or wounds. MUSCULOSKELETAL: Denies back pain, joint pain, or myalgia. NEUROLOGIC: Denies headache, numbness, tingling, or weakness. PSYCH: Denies depression or anxiety. [facility] Past Medical History Medical History Contact dermatitis heart rate decelerations affecting management of mother LINH (generalized anxiety disorder) MDD (major depressive disorder), recurrent episode, moderate Missed period Ovarian dysfunction Positive urine test Post-op pain Term Family History Family History Father Family history of mental disorder Depression Grandparent Family history of malignant neoplasm of cervix Family history of lung cancer Family history of malignant neoplasm of ovary Mother Family history of malignant neoplasm of cervix Family history of malignant neoplasm of ovary Social History Social History Social History: Years smoked: 5 Smoking status: Smoker, status unknown (Pt vapes) Tobacco type: cigarettes and e-cigarettes/vaping Second hand tobacco smoke exposure: No Smoking end date: 06/24/21 Additional smoking assessment comments: Pt vapes Alcohol intake: current Alcohol use details: Rarely Substance use: never Substance use type: does not use Lack of Transportation: No Lack of Food: Never True Current Housing: I Have Housing Concerned About Future Housing: No Difficulty Paying Gas/Electric Bills: No Difficulty Paying for Meds: No Currently Unemployed: No Education: High School Diploma/GED Difficulty w/ Childcare or Family Care: No Living arrangements: with family Occupation/Education: occupation 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 Please see nursing chart for further information. There is no relevant family history pertinent to the presenting complaint Exam Narrative: GENERAL: Well-appearing, well-nourished, and in no acute distress. HEAD: Normocephalic, atraumatic. EYES: EOMI. No redness or drainage. Conjunctivae normal. ENT: Mucous membranes pink and moist. Large periapical abscess above tooth 7. Mild swelling to the adjacent upper jaw line. No trismus. Obvious cavity to the medial portion of tooth
== END 2024-04-22 19:15 | disposition home or self-care (01) ==
PROVIDERS: Emergency Provider Nurse Practitioner; PCP Family Medicine
DX: K04.7 Periapical abscess without sinus (principal); F17.290 Nicotine dependence, other tobacco product, uncomplicated
CPT/HCPCS: 99213; G0463

== ENCOUNTER 2024-12-03 17:57 | Observation (INO) | payer OTHER, SELFPAY ==
[2024-12-03] VITALS (9 sets, daily range): BP systolic 124–125; BP diastolic 72; PULSE 90–98; RESP 19; TEMP 37.2; O2SAT 99–100
--- NOTE | 2024-12-03 18:27 | ED_ITS ---
HPI - General Chief complaint: Vaginal Bleeding <FAITH Carr Last Filed: 12/03/24 23:19> Stated complaint: miscarriage <FAITH Carr Last Filed: 12/03/24 23:19> Time Seen by Provider: 12/03/24 18:06 <FAITH Carr Last Filed: 12/03/24 23:19> Source: patient <FAITH Carr Last Filed: 12/03/24 23:19> Mode of arrival: ambulatory <FAITH Carr Last Filed: 12/03/24 23:19> Limitations: no limitations <FAITH Carr Last Filed: 12/03/24 23:19> History of Present Illness HPI Narrative: Patient is a 29 y/o female who presents to the ED with c/o miscarriage. Patient reports she was approx 14 weeks gestation. Has been seeing Dr. Braxton for this d/t hx of subchorionic hematoma in 1st trimester. Had confirmed IUP. . Began having some cramping in her lower abdomen last night into today. Around 445pm began having vaginal bleeding and passed the fetus at home. States she cut the umbilical cord at home. She is concerned as she has not passed the placenta yet. She is still bleeding and has passed some small clots, denies significant pain at this time. Denies N/V, fevers. <FAITH Carr Last Filed: 12/03/24 23:19> Related Data Allergies/Adverse reactions: Allergies Allergy/AdvReac Type Severity Reaction Status Date / Time amoxicillin Allergy Severe Hives Verified 05/02/24 15:18 <FAITH Carr Last Filed: 12/03/24 23:19> Review of Systems 2 Review of Systems: All systems reviewed & are unremarkable except as noted in HPI. <FAITH Carr Last Filed: 12/03/24 23:19> All systems reviewed & are unremarkable except as noted in HPI and below < FAITH Carr Last Filed: 12/03/24 23:19> PMFSH Past Medical History Medical History: Medical History Ovarian dysfunction MDD (major depressive disorder), recurrent episode, moderate LINH (generalized anxiety disorder) Contact dermatitis Post-op pain Term heart rate decelerations affecting management of mother Positive urine test Missed period <Mercy Richards PA-C - Last Filed: 12/03/24 23:19> Family History Family History: Family History Father Family history of mental disorder Depression Grandparent Family history of malignant neoplasm of cervix Family history of lung cancer Family history of malignant neoplasm of ovary Mother Family history of malignant neoplasm of cervix Family history of malignant neoplasm of ovary <Mercy Richards PA-C - Last Filed: 12/03/24 23:19> Social History Social History: Social History Social History: Years smoked: 5 Smoking status: Never smoker Tobacco type: cigarettes and e-cigarettes/vaping Second hand tobacco smoke exposure: No Smoking end date: 06/24/21 Additional smoking assessment comments: Pt vapes Alcohol intake: current Alcohol use details: Rarely Substance use: never Substance use type: does not use Do You Feel Safe in your Home?: Yes Lack of Transportation: No Lack of Food: Never True Current Housing: I Have Housing Concerned About Future Housing: No Difficulty Paying Gas/Electric Bills: No Difficulty Paying for Meds: No Currently Unemployed: No Education: High School Diploma/GED Difficulty w/ Childcare or Family Care: No Living arrangements: with family Occupation/Education: occupation 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 HEAD: Normocephalic, atraumatic. RESPIRATORY: Airway patent, respirations nonlabored. Clear to auscultation bilaterally, no rales, rhonchi, wheezing. CARDIOVASCULAR: Regular rate and rhythm without murmurs, rubs, or gallops. ABDOMINAL: Soft, no significant tenderness, nondistended. Normoactive BS. PELVIC: Normal external genitalia. Dark red vaginal bleeding coming from vaginal vault, small clots noted. No obvious tissue. Discomfort reported with speculum exam and was deferred. MUSCULOSKELETAL: Moves all extremities. No gross deformities. SKIN: Warm, dry, normal color. NEURO: A&O X3. Speech clear. PSYCHIATRIC: Tearful. Normal interaction. <Mercy Richards PA-C - Last Filed: 12/03/24 23:19> Course MANAGER OF CHANGE/PA Physician Supervision Patient's HPI, Exam, and MDM were reviewed and I agreed with the workup and disposition done in the emergency department by the MLP. I was available for consultation, but was not directly involved with patient's care nor did I evaluate the patient. <Brandon Tomlin MD - Last Filed: 12/03/24 20:47> Vital Signs Vital signs: Vital Signs Temperature 98.9 F 12/03/24 20:20 Respiratory Rate 12/03/24 20:20 Temperature 98.9 F 12/03/24 20:20 Pulse Rate 92 12/03/24 20:30 Respiratory Rate 19 12/03/24 20:20 Blood Pressure 125/72 12/03/24 20:30 Pulse Oximetry 100 12/03/24 20:43 Oxygen Delivery Room Air 12/03/24 21:00 <Mercy Richards PA-C - Last Filed: 12/03/24 23:19> Vital Signs Temperature 98.9 F 12/03/24 20:20 Respiratory Rate 12/03/24 20:20 Temperature 98.9 F 12/03/24 20:20 Pulse Rate 92 12/03/24 20:30 Respiratory Rate 12/03/24 20:20 Blood Pressure 125/72 12/03/24 20:30 Pulse Oximetry 100 12/03/24 20:43 Oxygen Delivery Room Air 12/03/24 21:00 <Brandon Tomlin MD - Last Filed: 12/03/24 20:47> MDM - OB/Uterine Contractions MDM Narrative Medical decision making narrative: Patient presented to ED with spontaneous miscarriage, was approximately 14 weeks gestation, . Passed the fetus at home and brought this into the ED. States she has not passed the placenta yet. Vital signs are stable upon arrival. Patient mildly uncomfortable appearing, anxious, tearful. Performed brief pelvic exam which revealed some clots, no obvious /placental tissue. Fetus was sent to pathology for further evaluation. Discussed case with WHITNEY Stevens on-call for [facility], if unable to obtain ultrasound at this time, recommended admission for observation, ultrasound in the morning to rule out retained POC. Recommended giving 800 mcg of Cytotec vaginally now to help facilitate passage. Discussed these recommendations with patient. Patient is in agreement with plan and admission. Will be admitted to L&D. Laboratory studies with white blood cell count of 14.5. H&H is stable. Beta hCG is 41,390. Patient's blood type is O positive, no indication for RhoGAM. < Mercy Richards PA-C - Last Filed: 12/03/24 23:19> Medical Records Attestation: I reviewed the patient's medical records. <Mercy Richards PA-C - Last Filed: 12/03/24 23:19> Lab Data Attestation: I reviewed the patient's lab results. <Mercy Richards PA-C - Last Filed: 12/03/24 23:19> Result diagrams: 12/03/24 18:47 12/03/24 18:47 <Mercy Richards PA-C - Last Filed: 12/03/24 23:19> Labs: Lab Results 12/03/24 Range/Units 18:47 WBC 14.5 H (4.5-10.0) K/mm3 RBC 3.74 L (4.2-5.4) M/mm3 Hgb 11.7 L D (12.0-15.0) g/dL Hct 33.8 L (37.0-47.0) % MCV 90.4 (80-100) fl MCH 31.3 (26-34) pg MCHC 34.6 (32-36) g/dl RDW 12.5 (11.5-14.5) % Plt Count 205 (150-375) k/mm3 MPV 12.2 H (7.4-10.4) fl Immature Gran % (Auto) 0.3 (0-0.5) % Neut % (Auto) 81.3 H (45.5-73.1) % Lymph % (Auto) 12.1 L (18.3-44.2) % Park % (Auto) 5.8 (2.6-8.5) % Eos % (Auto) 0.2 (0-4.4) % Baso % (Auto) 0.3 (0.2-1.2) % Lymph # (Auto) 1.76 (0.9-3.2) K/mm3 Park # (Auto) 0.8 H (0.1-0.6) K/mm3 Eos # (Auto) 0.0 (0-0.3) K/mm3 Baso # (Auto) 0.1 (0.0-0.1) K/mm3 Abs Immat Gran (auto) 0.04 H (0.00-0.031) K/mm3 Absolute Neuts (auto) 11.8 H (1.3-6.7) K/mm3 Absolute Nucleated RBC 0.000 (0.0-0.012) K/mm3 Nucleated RBC % 0.0 (0.0-0.2) % PT 13.2 (11.1-14.7) Seconds INR 1.0 APTT 24.1 (22.3-36.8) Seconds Sodium 134 L (137-145) mmol/L Potassium 3.6 (3.4-5.0) mmol/L Chloride 108 H (98-107) mmol/L Carbon Dioxide 23 (22-30) mmol/L Anion Gap 3 L (4-12) mmol/L BUN 8 D (7-17) mg/dL Creatinine 0.60 L (0.7-1.0) mg/dL Estim Creat Clear Calc 131 ml/min Estimated GFR > 60 (59 - ) Glucose 92 (65-110) mg/dL Calcium 8.9 (8.4-10.2) mg/dL Total Bilirubin 0.4 (0.2-1.3) mg/dL AST 20 (14-36) U/L ALT 10 (6-35) U/L Alkaline Phosphatase 67 (38-126) U/L Total Protein 7.0 (6.3-8.2) g/dL Albumin 3.9 (3.5-5.1) g/dL Beta HCG, Quant 22845.00 mIU/ML Blood Type O Positive Antibody Screen TNP Baby's Blood Type TNP Baby's MAYANK TNP Doses of RhIg Required 0 <Mercy Richards PA-C - Last Filed: 12/03/24 23:19> Lab Results 12/03/24 Range/Units 18:47 WBC 14.5 H (4.5-10.0) K/mm3 RBC 3.74 L (4.2-5.4) M/mm3 Hgb 11.7 L D (12.0-15.0) g/dL Hct 33.8 L (37.0-47.0) % MCV 90.4 (80-100) fl MCH 31.3 (26-34) pg MCHC 34.6 (32-36) g/dl RDW 12.5 (11.5-14.5) % Plt Count 205 (150-375) k/mm3 MPV 12.2 H (7.4-10.4) fl Immature Gran % (Auto) 0.3 (0-0.5) % Neut % (Auto) 81.3 H (45.5-73.1) % Lymph % (Auto) 12.1 L (18.3-44.2) % Park % (Auto) 5.8 (2.6-8.5) % Eos % (Auto) 0.2 (0-4.4) % Baso % (Auto) 0.3 (0.2-1.2) % Lymph # (Auto) 1.76 (0.9-3.2) K/mm3 Park # (Auto) 0.8 H (0.1-0.6) K/mm3 Eos # (Auto) 0.0 (0-0.3) K/mm3 Baso # (Auto) 0.1 (0.0-0.1) K/mm3 Abs Immat Gran (auto) 0.04 H (0.00-0.031) K/mm3 Absolute Neuts (auto) 11.8 H (1.3-6.7) K/mm3 Absolute Nucleated RBC 0.000 (0.0-0.012) K/mm3 Nucleated RBC % 0.0 (0.0-0.2) % PT 13.2 (11.1-14.7) Seconds INR 1.0 APTT 24.1 (22.3-36.8) Seconds Sodium 134 L (137-145) mmol/L Potassium 3.6 (3.4-5.0) mmol/L Chloride 108 H (98-107) mmol/L Carbon Dioxide 23 (22-30) mmol/L Anion Gap 3 L (4-12) mmol/L BUN 8 D (7-17) mg/dL Creatinine 0.60 L (0.7-1.0) mg/dL Estim Creat Clear Calc 131 ml/min Estimated GFR > 60 (59 - ) Glucose 92 (65-110) mg/dL Calcium 8.9 (8.4-10.2) mg/dL Total Bilirubin 0.4 (0.2-1.3) mg/dL AST 20 (14-36) U/L ALT 10 (6-35) U/L Alkaline Phosphatase 67 (38-126) U/L Total Protein 7.0 (6.3-8.2) g/dL Albumin 3.9 (3.5-5.1) g/dL Beta HCG, Quant 97992.00 mIU/ML Blood Type O Positive Antibody Screen TNP Baby's Blood Type TNP Baby's MAYANK TNP Doses of RhIg Required 0 <Brandon Tomlin MD - Last Filed: 12/03/24 20:47> Discharge Plan Discharge Clinical Impression: Spontaneous , 14 weeks gestation of <Mercy Richards PA-C - Last Filed: 12/03/24 23:19> Patient Disposition: Still a Patient <Mercy Richards PA-C - Last Filed: 12/03/24 23:19> Condition: Stable <Mercy Richards PA-C - Last Filed: 12/03/24 23:19>
[2024-12-03] MEDS: miSOPROStol 200 MCG TABLET 800 MCG VAGINAL (18:55)
[2024-12-03 19:18] LABS: Alanine Aminotransferase 10 U/L (6-35); Albumin Level 3.9 g/dL (3.5-5.1); Alkaline Phosphatase 67 U/L (38-126); Anion Gap 3 mmol/L (4-12); Aspartate Amino Transferase 20 U/L (14-36); Basophils Absolute Auto 0.1 K/mm3 (0.0-0.1); Basophils Percent Auto 0.3 % (0.2-1.2); Bilirubin,Total 0.4 mg/dL (0.2-1.3); Blood Urea Nitrogen 8 mg/dL (7-17); Calcium 8.9 mg/dL (8.4-10.2); Carbon Dioxide 23 mmol/L (22-30); Chloride 108 mmol/L (98-107); Eosinophils Percent Auto 0.2 % (0-4.4); Estimated CRCL calculation 131 ml/min; Estimated Glomerular Filt Rate > 60; Glucose 92 mg/dL (65-110); Hematocrit 33.8 % (37.0-47.0); Hemoglobin 11.7 g/dL (12.0-15.0); Immature Granulocyte Absolute 0.04 K/mm3 (0.00-0.031); Immature Granulocyte Percent A 0.3 % (0-0.5); Lymphocytes Absolute Auto 1.76 K/mm3 (0.9-3.2); Lymphocytes Percent Auto 12.1 % (18.3-44.2); Mean Corpuscular HGB Conc 34.6 g/dl (32-36); Mean Corpuscular Hemoglobin 31.3 pg (26-34); Mean Corpuscular Volume 90.4 fl (80-100); Mean Platelet Volume 12.2 fl (7.4-10.4); Monocytes Absolute Auto 0.8 K/mm3 (0.1-0.6); Monocytes Percent Auto 5.8 % (2.6-8.5); Neutrophils Absolute Auto 11.8 K/mm3 (1.3-6.7); Neutrophils Percent Auto 81.3 % (45.5-73.1); Platelet Count Result 205 k/mm3 (150-375); Potassium 3.6 mmol/L (3.4-5.0); Red Blood Count 3.74 M/mm3 (4.2-5.4); Red Cell Distribution Width 12.5 % (11.5-14.5); Sodium 134 mmol/L (137-145); White Blood Count 14.5 K/mm3 (4.5-10.0)
[2024-12-03 19:31] LABS: Prothrombin Time 13.2 Seconds (11.1-14.7)
[2024-12-03 19:32] LABS: Partial Thromboplastin Time 24.1 Seconds (22.3-36.8)
--- NOTE | 2024-12-03 19:57 | PC.NURSE ---
Report received from ED nurse.
--- NOTE | 2024-12-03 20:25 | PC.NURSE ---
Call placed to Dr. Marlow regarding pt arrival to OB. Scant bleeding noted, no visible signs of placenta, fundus firm. Pt c/o headache 09/07, pt denies any cramping. Orders for IBU 600 mg q6 for headache. Monitor pt overnight for delivery of placenta, US in AM. Vitals q4.
[2024-12-03] MEDS: ACETAMINOPHEN 325 MG TABLET 650 MG PO (20:44)
[2024-12-03] MEDS: IBUPROFEN 600 MG TABLET PO (20:44)
--- NOTE | 2024-12-03 20:55 | PC.NURSE ---
Pt called nurse into bathroom, placenta passed in toliet. This RN visualized placenta. Pt flushed placenta down after.
--- NOTE | 2024-12-03 20:56 | PC.NURSE ---
Pt requesting to go home now that placenta is delivered. Pt stated she is comfortable going home, she does not have any cramping, scant bleeding noted. This RN to discuss with Dr. Marlow.
--- NOTE | 2024-12-03 21:00 | PC.NURSE ---
Call placed to Dr. Marlow reported pt passing placenta @ 2054 and flushing it down the toliet. Pt requesting to go home, pt states no pain or cramping other then headache. Scant bleeding noted, no clots. Per Dr. Marlow Pt is able to be discharged home, Dr office will call on Wednesday or Wednesday to set up ultrasound and appointment. Pt is to call/return if bleeding more then one pad an hour, fever greater then 100.4, increase in cramping. Per Dr. Marlow we do not need to draw demise labs due to pt being 14 weeks.
--- NOTE | 2024-12-03 21:15 | PC.NURSE ---
MTS NOTIFIED ABOUT 14 WK SAB. REFERRAL #: [id number] STATUS: RELEASED
--- NOTE | 2024-12-03 21:20 | PC.NURSE ---
Heating And Ventilating Drafter was contacted regarding delivery. RN to call dry wall applicator back with home information once received.
--- NOTE | 2024-12-03 21:21 | PC.NURSE ---
Discussed plan of care with pt from Dr. Estevez and precautions. Pt stated understanding, all questions and concerns answered. Pt requesting to have baby cremated with seperate home. Pt is discussing home options with via phone at this time.
--- NOTE | 2024-12-03 21:30 | PC.NURSE ---
Share consent form reviewed with pt, completed and signed. Mother decided to authorize release of information to [facility] for follow up communication.
--- NOTE | 2024-12-03 21:56 | PC.NURSE ---
This RN notified engine tester's office to update them regarding patient's home decision.
--- NOTE | 2024-12-03 21:56 | PC.NURSE ---
Discharge instructions explained and provided to pt. Pt stated understanding all questions and concerns answered. Pt ambulated out of department (Per her request, pt denied a wheelchair) in stable condition per order from Dr. Marlow with all belongings. Family @ pt side.
--- NOTE | 2024-12-05 21:11 | P.PNOB_ITS ---
OB - Triage/Final Diagnosis Visit Information Comments/Additional reasons for admission: I have assessed the risk for this patient, Nikia Danielle, and determined that she would benefit from observation care. Evaluation Laboratory results: Laboratory Tests 12/03/24 18:47 WBC 14.5 H RBC 3.74 L Hgb 11.7 L D Hct 33.8 L MCV 90.4 MCH 31.3 MCHC 34.6 RDW 12.5 Plt Count 205 MPV 12.2 H Immature Gran % (Auto) 0.3 Neut % (Auto) 81.3 H Lymph % (Auto) 12.1 L [place] % (Auto) 5.8 Eos % (Auto) 0.2 Baso % (Auto) 0.3 Lymph # (Auto) 1.76 [place] # (Auto) 0.8 H Eos # (Auto) 0.0 Baso # (Auto) 0.1 Abs Immat Gran (auto) 0.04 H Absolute Neuts (auto) 11.8 H Absolute Nucleated RBC 0.000 Nucleated RBC % 0.0 PT 13.2 INR 1.0 APTT 24.1 Sodium 134 L Potassium 3.6 Chloride 108 H Carbon Dioxide 23 Anion Gap 3 L BUN 8 D Creatinine 0.60 L Estim Creat Clear Calc 131 Estimated GFR > 60 Glucose 92 Calcium 8.9 Total Bilirubin 0.4 AST 20 ALT 10 Alkaline Phosphatase 67 Total Protein 7.0 Albumin 3.9 Beta HCG, Quant 50920.00 Blood Type O Positive Antibody Screen Negative Baby's Blood Type TNP Baby's MAYANK TNP Doses of RhIg Required 0 Final Diagnosis (1) Complete miscarriage: Code(s): O03.9 - Complete or unspecified spontaneous without complication Status: Acute (2) 14 weeks gestation of : Code(s): Z3A.14 - 14 weeks gestation of Status: Acute (3) Spontaneous : Code(s): O03.9 - Complete or unspecified spontaneous without complication Status: Acute
--- OUTSIDE RECORDS SUMMARY | 2024-12-10 08:46 | XMS_ITS | Encounter Summary ---
Author Organization [facility] Address [address] [place] [address] Care Team Providers Care Mounter Sousaphones Name Role Phone Unavailable Primary Care Provider Unavailabl e Reason for Visit * Reason Comments Labs Only Encounter Details Date Type Department Care Team (Late st Contact Info) Description 05/29/2020 2:30 PM CDT Procedure visit [facility] [place] [address] [place] [address] Epistaxis Social History Tobacco Use Types Packs/Day Years Used Date Smoking Tobacco: Every Day Cigarettes Smokeless Tobacco: Never Alcohol Use Standard Drinks/Week Comments Yes 0 (1 standard drink = 0.6 oz pur e alcohol) Sex and Gender Information Value Date Recorded Sex Assigned at Not on file Gender Identity Not on file Sexual Orientation Not on file COVID-19 Exposure Response Date Recorded In the last month, have you been in contact with someone who was confirmed or suspected to have Coronavirus / COVID-19? No / Unsure 05/28/2020 3:07 PM CDT documented as of this encounter Progress Notes * Ailin Nina - 05/29/2020 1:59 PM CDT Pt came in for blood draw, left AC successful, 1 stick pt tolerated well. Drawn by Kev. documented in this encounter Plan of Treatment Not on file documented as of this encounter Procedures Procedure Name Priority Date/Time Associated Diagnosis Comments CBC WITH DIFFERENTIAL Routine 05/29/2020 2:01 PM CDT Epistaxis TSH Routine 05/29/2020 2:01 PM CDT Epistaxis COMPREHENSIVE METABOLIC PANEL Routine 05/29/2020 2:01 PM CDT Epistaxis documented in this encounter Results * TSH (05/29/2020 2:01 PM CDT) TSH 1.270 0.450 - 4.500 uIU/mL [facility] Blood 05/29/2020 2:01 PM CDT 05/30/2020 Narrative [facility] - 05/31/2020 6:36 AM CDT Performed at: ??01 - [facility] [address] ??[id number] Portuguese Tutor: Jimy Arellano PhD, Phone: ??[phone] Ryann Muniz NP CHEMISTRY ORDER NE [facility] [phone] * (ABNORMAL) COMPREHENSIVE METABOLIC PANEL (05/29/2020 2:01 PM CDT) Pathologist [facility] GLUCOSE 89 65 - 99 mg/dL [facility] BUN 6 6 - 20 mg/dL [facility] CREATININE 0.80 0.57 - 1.00 mg/dL [facility] GFR 105 >59 mL/min/1.7 3 [facility] GFR, 121 >59 mL/min/1.7 3 [facility] BUN/CREAT RATIO 8(L) 9 - 23 [facility] SODIUM 142 134 - 144 mmol/L [facility] POTASSIUM 4.2 3.5 - 5.2 mmol/L [facility] CHLORIDE 103 96 - 106 mmol/L [facility] CO2 24 20 - 29 mmol/L [facility] CALCIUM 9.3 8.7 - 10.2 mg/dL [facility] TOTAL PROTEIN 6.9 6.0 - 8.5 g/dL [facility] ALBUMIN 4.7 3.9 - 5.0 g/dL [facility] GLOBULIN 2.2 1.5 - 4.5 g/dL [facility] ALBUMIN/GLOBULIN RATIO 2.1 1.2 - 2.2 [facility] BILIRUBIN TOTAL 0.3 0.0 - 1.2 mg/dL [facility] ALKALINE PHOSPHATASE 60 39 - 117 IU/L [facility] AST 10 0 - 40 IU/L [facility] ALT 9 0 - 32 IU/L [facility] Blood 05/29/2020 2:01 PM CDT 05/30/2020 Narrative [facility] - 05/31/2020 6:36 AM CDT Performed at: ?? - [facility] ??[id number] Portuguese Tutor: Jimy Arellano PhD, Phone: ??[phone] Ryann Muniz NP CHEMISTRY ORDER NE [facility] [phone] * (ABNORMAL) CBC WITH DIFFERENTIAL (05/29/2020 2:01 PM CDT) WBC 9.2 3.4 - 10.8 x10E3/uL [facility] RBC 4.33 3.77 - 5.28 x10E6/uL [facility] HEMOGLOBIN 14.4 11.1 - 15.9 g/dL [facility] HEMATOCRIT 43.3 34.0 - 46.6 % [facility] MCV 100(H) 79 - 97 fL [facility] MCH 33.3(H) 26.6 - 33.0 pg [facility] MCHC 33.3 31.5 - 35.7 g/dL [facility] RDW 11.7 11.7 - 15.4 % [facility] PLATELETS 227 150 - 450 x10E3/uL [facility] NEUTROPHIL 68 Not Estab. % [facility] LYMPHOCYTES 26 Not Estab. % [facility] MONOCYTE 5 Not Estab. % [facility] EOSINOPHILS 1 Not Estab. % [facility] BASOPHILS 0 Not Estab. % [facility] NEUTROPHIL ABSOLUTE 6.2 1.4 - 7.0 x10E3/uL [facility] LYMPHOCYTE ABSOLUTE 2.3 0.7 - 3.1 x10E3/uL [facility] MONOCYTE ABSOLUTE 0.5 0.1 - 0.9 x10E3/uL [facility] EOSINOPHIL ABSOLUTE 0.1 0.0 - 0.4 x10E3/uL [facility] BASOPHILS ABSOLUTE 0.0 0.0 - 0.2 x10E3/uL [facility] IMMATURE GRANULOCYTES 0 Not Estab. % [facility] IMMATURE GRANULOCYTES ABSOLUTE 0.0 0.0 - 0.1 x10E3/uL [facility] Blood 05/29/2020 2:01 PM CDT 05/30/2020 Narrative [facility] - 05/31/2020 4:35 AM CDT Performed at: ??01 - [facility] [address] ??[id number] Portuguese Tutor: Jimy Arellano PhD, Phone: ??[phone] Ryann Muniz NP HEMATOLOGY JENNIFER ELAM [facility] [phone] documented in this encounter Visit Diagnoses Diagnosis Epistaxis documented in this encounter
--- OUTSIDE RECORDS SUMMARY | 2024-12-10 08:46 | XMS_ITS | Encounter Summary ---
Author Organization [facility] Address [address] [place] [address] Care Team Providers Care Regional Agronomist Name Role Phone Unavailable Primary Care Provider Unavailabl e Reason for Visit * Reason Onset Date Comments Primary Care Outreach 06/13/2020 Encounter Details Date Type Department Care Team (Late st Contact Info) Description 06/13/2020 Telephone [facility] Global Integrity [place] [address] [place] [address] [place] [address] [facility] [address] [place] [address] Primary Care Outreach Social History Tobacco Use Types Packs/Day Years [...] have Coronavirus / COVID-19? No / Unsure 06/18/2020 9:18 AM CDT documented as of this encounter Miscellaneous Notes * Telephone Encounter - Ryann Muniz NP - 06/13/2020 11:34 AM CDT Called pt and documented in this encounter Plan of Treatment Not on file documented as of this encounter Visit Diagnoses Not on filedocumented in this encounter
--- OUTSIDE RECORDS SUMMARY | 2024-12-10 08:46 | XMS_ITS | Clinical Summary ---
Author Organization [facility] Care Team Providers Care Mine Safety Director Name Role Phone Unavailable Primary Care Provider Unavailabl e Social History Tobacco Use Types Packs/Day Years Used Date Smoking Tobacco: Never Assessed Comments Unknown Sex and Gender Information Value Date Recorded Sex Assigned at Not on file Legal Sex Female 8:51 AM OUTSIDE PLANT ENGINEER Gender Identity Not on file Sexual Orientation Not on file Plan of Treatment Health Maintenance Due Date Last Done Comments Hepatitis C Virus (HCV) Screening 1997 Human Papillomavirus (HPV) Immunization (1 - 3-dose series) 2012 Pap Smear 2018 Influenza Immunization (#1) 2024 SARS-COV-2 Immunization ( season) 2024 07/30/2021, 07/09/2021 Respiratory Syncytial Virus (RSV) Immunization (Adult) (1 - 1-dose 75+ series) 2072 Hepatitis B Immunization Completed 998, 1997, 1997 DTaP/Tdap/Td Immunization Discontinued 2020, 12/01/2011, 08/22/2002, Additional history exists TdaP Immunization Completed 06/27/2021, 12/01/2011 Meningococcal Immunization (ACWY) Aged Out No longer eligible based on patient's age to complete this topic Pneumococcal Immunization Combined Aged Out No longer eligible based on patient's age to complete this topic Rotavirus Immunization Aged Out No lo nger eligible based on patient's age to complete this topic
--- OUTSIDE RECORDS SUMMARY | 2024-12-10 08:46 | XMS_ITS | Encounter Summary ---
Author Organization [facility] Address [address] [place] [address] Care Team Providers Care Hot Pond Operator Name Role Phone Unavailable Primary Care Provider Unavailabl e Reason for Visit * Reason Onset Date Comments Reminder Call 02/26/2021 LM - Appt remind er & 1 Visitor Policy Encounter Details Date Type Department Care Team (Late st Contact Info) Description 02/26/2021 Telephone [facility] Maternal & Care [address] [place] [address] Aileen Almanza Reminder Call (LM - Appt reminder & 1 Visitor Policy) Social History Tobacco Use Types Packs/Day Years Used Date Smoking Tobacco: Never Assessed Comments Yes Sex and Gender Information Value Date Recorded Sex Assigned at Not on file Gender Identity Not on file Sexual Orientation Not on file documented as of this encounter Plan of Treatment Not on file documented as of this encounter Visit Diagnoses Not on filedocumented in this encounter
--- OUTSIDE RECORDS SUMMARY | 2024-12-10 08:46 | XMS_ITS | Encounter Summary ---
Author Organization [facility] Address [address] [place] [address] Care Team Providers Care Acquisition Specialist Name Role Phone Unavailable Primary Care Provider Unavailabl e Encounter Details Date Type Department Care Team (Late st Contact Info) Description 06/12/2020 Orders Only [facility] [address] [place] [address] Ryann Muniz, CHAO [address] [facility] [address] [place] [address] Social History Tobacco Use Types Packs/Day Years [...] PM CDT documented as of this encounter Plan of Treatment Not on file documented as of this encounter Visit Diagnoses Not on filedocumented in this encounter
--- OUTSIDE RECORDS SUMMARY | 2024-12-10 08:46 | XMS_ITS | Clinical Summary ---
Author Organization [facility] [employer] [facility] Address [address] [place] [address] Care Team Providers Care Charging Plug Placer Name Role Phone Unavailable Primary Care Provider Unavailabl e Allergies No known active allergies Medications Medication Sig Dispensed Refills Start Date End Date Status fluconazole (DIFLUCAN) 150 mg tablet Take 1 Tablet (150 mg) by mouth daily. One tablet only for treatment. 1 Tablet 06/12/2020 Active Active Problems Problem Noted Date Diagnosed Date Tobacco use 05/28/2020 Immunizations Name Administration Dates Next Due (GARDASIL)(9-45 YRS) HUMAN P APILLOMAVIRUS VACCINE, TYPES 6, 11, 16, 18, QUADRIVALENT (4VHPV), 3 DOSE, IM 11/29/2014 Family History Medical History Relation Name Comments No Known Problems Father No Known Problems Half-Brother 1 No Known Problems Half-Brother 2 No Known Problems Half-Brother 3 No Known Problems Half-Brother 4 No Known Problems Half-Sister 1 No Known Problems Half-Sister 2 No Known Problems Half-Sister 3 No Known Problems Half-Sister 4 Lung Cancer Maternal Grandfather Lung Cancer Maternal Grandmother No Known Problems Mother Lung Cancer Paternal Grandfather No Known Problems Paternal Grandmother Relation Name Status Comments Father Alive Half-Brother 1 Alive Half-Brother 2 Alive Half-Brother 3 Alive Half-Brother 4 Alive Half-Sister 1 Alive Half-Sister 2 Alive Half-Sister 3 Alive Half-Sister 4 Alive Maternal Grandfather Maternal Grandmother Mother Alive Paternal Grandfather Paternal Grandmother Alive Social History Tobacco Use Types Packs/Day Years Used Date Smoking Tobacco: Every Day Cigarettes Smokeless Tobacco: Never Alcohol Use Standard Drinks/Week Comments Yes 0 (1 standard drink = 0.6 oz pur e alcohol) Sex and Gender Information Value Date Recorded Sex Assigned at Not on file Gender Identity Not on file Sexual Orientation Not on file Last Filed Vital Signs Vital Sign Reading Time Taken Comments Blood Pressure 116/72 05/28/2020 3:09 PM CDT Pulse 82 05/28/2020 3:09 PM CDT Temperature 36.8 ??C (98.2 ??F) 05/28/2020 3:09 PM CD T Respiratory Rate 18 05/28/2020 3:09 PM CDT Oxygen Saturation 95% 05/28/2020 3:09 PM CDT Inhaled Oxygen Concentration - - Weight 64.4 kg (142 lb) 05/28/2020 3:09 PM CDT Height 170.2 cm (5' 7 ) 05/28/2020 3:09 PM CDT Body Mass Index 22.24 05/28/2020 3:09 PM CDT Plan of Treatment Health Maintenance Due Date Last Done Comments HPV VACCINES (2 - 3-dose series) 12/27/2014 11/29/19 15 DTAP/TDAP/TD VACCINES (1 - Tdap) 2016 HEPATITIS B VACCINES (1 of 3 - 19+ 3-dose series) 2016 CERVICAL CANCER SCREENING 05/28/2023 05/28/2020 INFLUENZA VACCINE (#1) 2024 CHLAMYDIA SCREENING (ANNUAL) 11-24 YEARS Discontinued 05/28/2020 PNEUMOCOCCAL VACCINE 0-64 YEARS Aged Out No longer eligible based on patient's age to complete this topic Procedures Procedure Name Priority Date/Time Associated Diagnosis Comments CERV/VAG CYTO SCREEN PAP W/O HPV Routine 05/28/2020 3:57 PM CDT Vaginal discharge GC/CHLAMYDIA, URINE Routine 05/28/2020 3 :48 PM CDT Vaginal discharge from Last 3 Months or Most Recently Relevant to Health Maintenance Results * CERV/VAG CYTO SCREEN PAP W/O HPV (05/28/2020 3:57 PM CDT) DIAGNOSIS (PAP): Comment [facility] Comment:NEGATIVE FOR INTRAEP ITHELIAL LESION OR MALIGNANCY. ADEQUACY: Comment [facility] Comment: Satisfactory for evaluation. ??Endocervical and/or squamous metaplastic cells (endocervical component) are present. CLINICIAN PROVIDED ICD10 Comment [facility] Comment:N89.8 PERFORMED BY (PAP): Comment [facility] Comment:Tin Frazier, Cytotec hnologist (ASCP) RESULT (PAP): . [facility] SEE NOTE (PAP): Comment [facility] Comment: The Pap smear is a screening test designed to aid in the detection of premalignant and malignant conditions of the uterine cervix. ??It is not a diagnostic procedure and should not be used as the sole means of detecting cervical cancer. ??Both false-positive and false-negative reports do occur. CYTOLOGY REFUSE COLLECTOR METHODOLOGY Comment [facility] Comment: This liquid based ThinPrep(R) pap test was screened with the use of an image guided system. Genital SWAB OF ENDOCERVIX / Unknown 05/28/2020 3:57 PM CDT 05/28/2020 Narrative [facility] - 06/03/2020 12:35 PM CDT Performed at: ??01 - [facility] ??[id number] Equipment Processer Storage: Olga Salas MD, Phone: ??[phone] Specimen Comment: No. of containers..01 ThinPrep Vial Ryann Muniz NP PATHOLOGY/CYTOL OGY ORDERABLES [facility] [phone] * GC/CHLAMYDIA, URINE (05/28/2020 3:48 PM CDT) CHLAMYDIA TRACHOMATIS DNA Indeterminate Negative [facility] Comment: The initial result for this specimen was a weak positive, but a repeat test was negative, with a final interpretation of indeterminate. The CDC suggests clinicians consider treating for presumptive infection or obtain a second specimen for repeat testing, depending on such factors as individual risk and local population prevalence. NEISSERIA GONORRHOEAE VAL Negative Negative [facility] Urine URINE SPECIMEN / Unknown 05/28/2020 3:48 PM CDT 05/29/2020 Narrative [facility] - 06/04/2020 3:35 AM CDT Performed at: ??01 - [facility] ??[id number] Equipment Processer Storage: Olga Salas MD, Phone: ??[phone] Ryann Muniz NP URINE ORDERABLE S COM [facility] [phone] from Last 3 Months or Most Recently Relevant to Health Maintenance
--- OUTSIDE RECORDS SUMMARY | 2024-12-10 08:46 | XMS_ITS | Encounter Summary ---
Author Organization [facility] Address [address] [place] [address] Care Team Providers Care Horses Or Mules Teamster Name Role Phone Unavailable Primary Care Provider Unavailabl e Encounter Details Date Type Department Care Team (Late st Contact Info) Description 06/04/2020 Orders Only [facility] Clinic at Work [employer] [place] [address] [place] [address] Ryann Muniz, CHAO [address] [facility] [address] [place] [address] Social History Tobacco Use Types [...]
--- OUTSIDE RECORDS SUMMARY | 2024-12-10 08:46 | XMS_ITS | Encounter Summary ---
Author Organization [facility] Address [address] [place]: Epic Prelude ADT YENNIFERMICHAEL RE[place]LISSA [place]IC[place] [address] Care Team Providers Care Technical Sales Representatives Name Role Phone Unavailable Primary Care Provider Unavailabl e Encounter Details Date Type Department Care Team (Latest Contact Info) Description 06/18/2020 Travel Social History Tobacco Use Types Packs/Day Years [...] AM CDT documented as of this encounter Plan of Treatment Not on file documented as of this encounter Visit Diagnoses Not on filedocumented in this encounter
--- OUTSIDE RECORDS SUMMARY | 2024-12-10 08:46 | XMS_ITS | Encounter Summary ---
Author Organization [facility] Address [address] [place] [address] Care Team Providers Care Business Process Engineer Name Role Phone Unavailable Primary Care Provider Unavailabl e Encounter Details Date Type Department Care Team (Latest Contact Info) Description 02/28/2021 11:09 AM CDT - 02/28/2021 11:59 PM CDT Hospital Encounter [facility] Maternal & Care [address] [place], [place] [id number] Katerin Pardo MD [address] [phone] Discharge Disposition: Home or Self Care Social History Tobacco Use Types Packs/Day Years Used Date Smoking Tobacco: Never Assessed Comments Yes Sex and Gender Information Value Date Recorded Sex Assigned at Not on file Gender Identity Not on file Sexual Orientation Not on file documented as of this encounter Plan of Treatment Not on file documented as of this encounter Procedures Procedure Name Priority Date/Time Associated Diagnosis Comments SONOGRAM - COMPLETE Routine 02/28/2021 1 1:20 AM CDT Family history of cleft lip Encounter for anatomic survey (HCC) documented in this encounter Results * SONOGRAM - COMPLETE (02/28/2021 11:20 AM CDT) Anatomical Region Laterality Modality Other 02/28/2021 11:2 0 AM CDT Narrative 02/28/2021 11:51 AM CDT ? [facility] ? [facility] Care Center ?PHONE: ??FAX: Pat. Name: ?FARHAT ALTMAN. No: ?[id number] Study Date: ?? 02/28/2021 ??11:20am , Age: ? 1995, 25 Pregnancies: ?? 1 Height: ? 67 in Weight: ? 150 lb LMP: ?Unknown GA by Base: ?? 23w2d ?? RD: 06/25/2021 GA by US: ? 22w6d ?? RD: 06/28/2021 GA Selected: ??23w2d (From [facility]) RD: ?06/25/2021 Referring MD: Sathish Braxton MD Hand Shaker: ??Emmie Kincaid RDMS CPT4: ? 93797 BMI: ?23.49 Hist/Ind: ? MOB: cleft lip ?also uncle, grandpa, and great grandpa ?Incomplete anatomic survey MEASUREMENTS & AGE ? GROWTH EVALUATION Measurement ??GA ? Range ? Srce %for GA Ratios ----- ---- ------- BPD ??5.9 cm 24w2d (37j0g-06a2e) Hadl BPD 79% FL/BPD 0.67 (0.71 - 0.87* HC ??21.1 cm 23w1d (12t2z-48p5n) Hadl HC ??30% FL/AC ??0.22 (0.20 - 0.24) AC ??18.3 cm 23w1d (60w3m-34t4m) Hadl AC ??37% HC/AC ??1.15 (1.03 - 1.22) FL ?? 4.0 cm 22w6d (03y1e-92c3h) Hadl FL ??24% CI ? 0.81 (0.70 - 0.86) HL ?? 3.7 cm 23w1d (13h2k-08s7n) Oni HL ??48% GA for sonogram 22w6d (30t8o-58e6h) ?? Weight Estimate: based on (BPD,HC,AC,FL) Hadlock ?Weight: 557 gm (476-639gm) Hadloc ? : 1lbs, 3oz ? Normal: 593 gm (445-741gm) Hadloc ? Wt% ? 33% for 23w2d Heart Rate: 154 bpm Amniotic Fluid Index: 06.2cm (Deepest Pocket) EVAL, PLACENTA Presentation: cephalic Placenta: posterior Heart Rate: 154 bpm Amniotic Fluid Volume: normal Anatomy!Normal!Abnormal!Suboptimal!Prev. Seen!Comments Cranium ?! ?! ?! ?! ? x ?! Mdl (CSP/Thal! ?! ?! ?! ? x ?! Ventricles ?? ! ?! ?! ?! ? x ?! Choroid Plexu! ?! ?! ?! ? x ?! Cerebellum ?? ! ?! ?! ?! ? x ?! Cerebellar Ve! ?! ?! ?! ? x ?! Cisterna M. ??! ?! ?! ?! ? x ?! Nuchal Fold ??! ?! ?! ?! ? x ?! Orbits ? ! ?! ?! ?! ? x ?! Profile ?! ?! ?! ?! ? x ?! Nasal Bone ?? ! ?! ?! ?! ? x ?! Lip ?! ?! ?! ?! ? x ?! Maxilla ?! ?! ?! ?! ? x ?! Mandible ? ! ?! ?! ?! ? x ?! Neck ? ! ?? x ??! ?! ?! ?! Spine ?! ?? x ??! ?! ?! ?! Lungs ?! ?! ?! ?! ? x ?! 4 Chamber Hea! ?! ?! ?! ? x ?! LVOT ? ! ?! ?! ?! ? x ?! RVOT ? ! ?? x ??! ?! ?! ?! 3 Vessel View! ?! ?! ?! ? x ?! 3 Vessel Trac! ?? x ??! ?! ?! ?! Cross-over ?? ! ?! ?! ?! ? x ?! Ductal Arch ??! ?? x ??! ?! ?! ?! Aortic Arch ??! ?? x ??! ?! ?! ?! Caval View ?? ! ?? x ??! ?! ?! ?! Situs ?! ?! ?! ?! ? x ?! Diaphragm ?! ?? x ??! ?! ?! ?! Stomach ?! ?! ?! ?! ? x ?! Liver ?! ?? x ??! ?! ?! ?! Bowel ?! ?! ?! ?! ? x ?! Kidneys ?! ?! ?! ?! ? x ?! Bladder ?! ?! ?! ?! ? x ?! 3 Vessel Cord! ?! ?! ?! ? x ?! Cord In! ?! ?! ?! ? x ?! Upper Extremi! ?! ?! ?! ? x ?! Hands ?! ?? x ??! ?! ?! ?!right, left ?previously seen Lower Extremi! ?! ?! ?! ? x ?! Feet ? ! ?! ?! ?! ? x ?! Placental Cor! ?! ?! ?! ? x ?! CLINICAL SUMMARY Study Number: 2 ?? A single fetus is seen in cephalic presentation. ??The measurements today are consistent with appropriate interval growth. ??The RD is based on a prior ultrasound. ??The amniotic fluid volume is within normal limits. IMPRESSION: Single, live, intrauterine at 23w2d ?? size is within normal limits ?? Amniotic fluid volume: within normal limits ?? No malformations seen within the limitations of ultrasound RECOMMEND: Ultrasound as clinically indicated Thank you for allowing us the opportunity to care for your patient Devaughn Turk MD <Electronic Signature> ??02/28/2021 11:47am R Jerad Braxton MD [facility] ORDERABLES documented in this encounter Visit Diagnoses Diagnosis Family history of cleft lip- Primary Family history of congenital anomalies Encounter for anatomic survey (HCC) Encounter for anatomic survey Encounter for other screening follow-up (HCC) 23 weeks gestation of (HCC) state, incidental documented in this encounter
--- OUTSIDE RECORDS SUMMARY | 2024-12-10 08:46 | XMS_ITS | Encounter Summary ---
Author Organization [facility] Address [address] [place] [address] Care Team Providers Care Contact Person Name Role Phone Unavailable Primary Care Provider Unavailabl e Reason for Visit * Reason Comments Labs Only Encounter Details Date Type Department Care Team (Latest Contact Info) Description 06/18/2020 9:30 AM CDT Procedure visit [facility] [employer] [place] [address] [place] [address] Irregular menstrual cycle (Primary Dx) Social History Tobacco Use Types Packs/Day Years [...] AM CDT documented as of this encounter Progress Notes * Eusebia Haro - 06/18/2020 9:27 AM CDT Pt presents with outside lab order from Dr. Megan Rock MD PH: [phone], . Left AC successful 1 stick. Pt tolerated well. documented in this encounter Plan of Treatment Not on file documented as of this encounter Visit Diagnoses Diagnosis Irregular menstrual cycle- Primary documented in this encounter
--- OUTSIDE RECORDS SUMMARY | 2024-12-10 08:46 | XMS_ITS | Patient Health Summary ---
Author Organization [facility] [employer] Address [address] [place] [address] Care Team Providers Care Recreation Coordinator Name Role Phone Megan Rock MD Primary Care Provider + Note from [facility],non-owned Affiliates and Associated Physician Practices is amultiple site organization consisting of ambulatory clinics and hospital sitesin [place], [place], [place] and [place]. This disclosure is being madepursuant to the Care Everywhere program and may not contain all information available regarding this patient. Last updated 18.[facility] Active Problems Problem Noted Date Diagnosed Date Family history of cleft lip 01/30/2021 Encounter for anatomic survey 01/30/2021 Social History Tobacco Use Types Packs/Day Years Used Date Smoking Tobacco: Never Assessed Sex and Gender Information Value Date Recorded Sex Assigned at Not on file Gender Identity Not on file Sexual Orientation Not on file Procedures * SONOGRAM - COMPLETE(Performed 02/28/2021) Performed for Family history of cleft lip, Encounter for anatomic survey (HCC) * SONOGRAM - COMPLETE(Performed 01/31/2021) Performed for Family history of cleft lip, Encounter for anatomic survey (HCC) Results * SONOGRAM - COMPLETE (02/28/2021 11:20 AM CDT) Only the most recent of2 resultswithin the time period is included. Anatomical Region Laterality Modality Other 02/28/2021 11:2 0 AM CDT Narrative 02/28/2021 11:51 AM CDT ? [facility] ? [facility] Center ?PHONE: ??FAX: Pat. Name: ?MIKE ALTMANOniel Pepe. No: ?[id number] Study Date: ?? 02/28/2021 ??11:20am , Age: ? 1995, 25 Pregnancies: ?? 1 Height: ? 67 in Weight: ? 150 lb LMP: ?Unknown GA by Base: ?? 23w2d ?? RD: 06/25/2021 GA by US: ? 22w6d ?? RD: 06/28/2021 GA Selected: ??23w2d (From [facility]) RD: ?06/25/2021 Referring MD: Sathish Braxton MD Hog Room Supervisor: ??Emmie Kincaid RDMS CPT4: ? 50107 BMI: ?23.49 Hist/Ind: ? MOB: cleft lip ?also uncle, grandpa, and great grandpa ?Incomplete anatomic survey MEASUREMENTS & AGE ? GROWTH EVALUATION Measurement ??GA ? Range ? Srce %for GA Ratios ----- ---- ------- BPD ??5.9 cm 24w2d (30k2j-62l1k) Hadl BPD 79% FL/BPD 0.67 (0.71 - 0.87* HC ??21.1 cm 23w1d (65l1p-62i4e) Hadl HC ??30% FL/AC ??0.22 (0.20 - 0.24) AC ??18.3 cm 23w1d (42h5z-91i9s) Hadl AC ??37% HC/AC ??1.15 (1.03 - 1.22) FL ?? 4.0 cm 22w6d (38d8h-10l1q) Hadl FL ??24% CI ? 0.81 (0.70 - 0.86) HL ?? 3.7 cm 23w1d (29b0e-16o9o) Oni HL ??48% GA for sonogram 22w6d (92a9w-69h6s) ?? Weight Estimate: based on (BPD,HC,AC,FL) Hadlock [...] MD <Electronic Signature> ??02/28/2021 11:47am R Jerad FRANCES ORDERABLES Care Teams Recreation Coordinator Relationship Specialty Start Date End Date Megan Rock MD [address] [place] [address] PCP - General 07/07/21
--- OUTSIDE RECORDS SUMMARY | 2024-12-10 08:46 | XMS_ITS | Encounter Summary ---
Author Organization [facility] Address [address] [place]: Epic Prelude ADT YENNIFERMICHAEL REYESLISSA NICHOLE [id number] Care Team Providers Care Equipment Operator/Laborer Name Role Phone Unavailable Primary Care Provider Unavailabl e Encounter Details Date Type Department Care Team (Latest Contact Info) Description 05/28/2020 Travel Social History Tobacco Use Types Packs/Day [...]
--- OUTSIDE RECORDS SUMMARY | 2024-12-10 08:46 | XMS_ITS | Encounter Summary ---
Author Organization [facility] Address [address] [place] [address] Care Team Providers Care Emergency Planning And Response Manager Name Role Phone Unavailable Primary Care Provider Unavailabl e Encounter Details Date Type Department Care Team (Late st Contact Info) Description 11/27/2021 9:45 AM CERTIFIED INDOOR ENVIRONMENTALIST Rapid Evaluation [facility] of Public Health Community Testing [facility] [address] [place] [address] Social History Tobacco Use Types Packs/Day Years Used Date Smoking Tobacco: Never Assessed Comments Unknown Sex and Gender Information Value Date Recorded Sex Assigned at Not on file Legal Sex Female 8:51 AM CERTIFIED INDOOR ENVIRONMENTALIST Gender Identity Not on file Sexual Orientation Not on file documented as of this encounter Plan of Treatment Not on file documented as of this encounter Visit Diagnoses Not on filedocumented in this encounter
--- OUTSIDE RECORDS SUMMARY | 2024-12-10 08:46 | XMS_ITS | Encounter Summary ---
Author Organization [facility] Address [address] [place] [address] Care Team Providers Care Cut Out Operator Name Role Phone Unavailable Primary Care Provider Unavailabl e Encounter Details Date Type Department Care Team (Late st Contact Info) Description 11/27/2021 Lab Requisition [facility] of Public Health Community Testing [facility] [address] [place] [address] Vikram Parham MD [address] [place] [address] [place] [address] Social History Tobacco Use Types Packs/Day Years Used Date Smoking Tobacco: Never Assessed Comments Unknown Sex and Gender Information Value Date Recorded Sex Assigned at Not on file Legal Sex Female 8:51 AM FRONT OFFICE SPECIALIST Gender Identity Not on file Sexual Orientation Not on file documented as of this encounter Plan of Treatment Not on file documented as of this encounter Procedures Procedure Name Priority Date/Time Associated Diagnosis Comments SARS-COV-2 PCR [facility] ONLY Routine 11/27/2021 10:20 AM FRONT OFFICE SPECIALIST documented in this encounter Visit Diagnoses Not on filedocumented in this encounter Additional Health Concerns Infection Onset Date Last Indicated Resolved Time COVID - 19 Confirmed 11/27/2021 11/27/2021 022 12:16 AM FRONT OFFICE SPECIALIST documented as of this encounter
--- OUTSIDE RECORDS SUMMARY | 2024-12-10 08:46 | XMS_ITS | Encounter Summary ---
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 MANAGER - 01/31/2021 11:59 PM FAST FOOD ASSISTANT RESTAURANT MANAGER Hospital Encounter [facility]'s [facility] Maternal & Care [address] [place], [place] [id number] Katrein Pardo MD [address] [id number] Chepe Pickens MD [address] [id number] Discharge Disposition: Home or Self Care Social [...] Associated Diagnosis Comments SONOGRAM - COMPLETE Routine 01/31/2021 1 0:36 AM FAST FOOD ASSISTANT RESTAURANT MANAGER Family history of cleft lip Encounter for anatomic survey (HCC) documented in this encounter Results * SONOGRAM - COMPLETE (01/31/2021 10:36 AM FAST FOOD ASSISTANT RESTAURANT MANAGER) Anatomical Region Laterality Modality Other 01/31/2021 10:3 6 AM FAST FOOD ASSISTANT RESTAURANT MANAGER Narrative 01/31/2021 1:38 PM FAST FOOD ASSISTANT RESTAURANT MANAGER ? [facility] ? [facility] ?PHONE: ??FAX: Pat. Name: ?FARHAT ALTMAN. No: ?[id number] Study Date: ?? 01/31/2021 ??10:36am , Age: ? 1995, 25 Pregnancies: ?? 1 Height: ? 67 in Weight: ? 150 lb LMP: ?Unknown GA by US: ? 19w3d ?? RD: 06/24/2021 GA Selected: ??19w2d (Outside Scan) RD: ?06/25/2021 Referring MD: Sathish Braxton MD Psychological Aide: ??Emmie Kincaid RDMS CPT4: ? 77181 BMI: ?23.49 Hist/Ind: ? MOB: cleft lip ?also uncle, grandpa, and great grandpa MEASUREMENTS & AGE ? GROWTH EVALUATION Measurement ??GA ? Range ? Srce %for GA Ratios ----- ---- ------- BPD ??4.6 cm 20w0d (45w7i-77v3l) Hadl BPD 81% FL/BPD 0.63 HC ??16.6 cm 19w2d (70a2q-27n2k) Hadl HC ??47% FL/AC ??0.19 AC ??15.1 cm 20w2d (35o2o-70f2f) Hadl AC ??79% HC/AC ??1.10 (1.06 - 1.25) FL ?? 2.9 cm 18w6d (59s1f-60o0o) Hadl FL ??30% CI ? 0.81 (0.70 - 0.86) HL ?? 2.8 cm 19w1d (14l5a-16t9o) Oni HL ??48% Cere 1.9 cm 18w6d (42m3i-51h0p) Hill Cere41% NB ?? 0.6 cm ? (22d1v-56i8z) Sone NB ??44% GA for sonogram 19w3d (32w8u-64b4k) ?? Weight Estimate: based on (BPD,HC,AC,FL) Hadlock ?Weight: 305 gm (261-350gm) Hadloc ? : 0lbs, 10oz ? Normal: 287 gm (215-359gm) Hadloc ? Wt% ? 70% for 19w2d Cervix: ??Approach: declined Heart Rate: 150 bpm EVAL, PLACENTA Presentation: variable Umbilical Cord: 3 Vessels Placenta: posterior:fundal Heart Rate: 150 bpm Amniotic Fluid Volume: normal Anatomy!Normal!Abnormal!Suboptimal!Prev. Seen!Comments Cranium ?! ?? x ??! ?! ?! ?! Mdl (CSP/Thal! ?? x ??! ?! ?! ?! Ventricles ?? ! ?? x ??! ?! ?! ?! Choroid Plexu! ?? x ??! ?! ?! ?! Cerebellum ?? ! ?? x ??! ?! ?! ?! Cerebellar Ve! ?? x ??! ?! ?! ?! Cisterna M. ??! ?? x ??! ?! ?! ?! Nuchal Fold ??! ?? x ??! ?! ?! ?! Orbits ? ! ?? x ??! ?! ?! ?! Profile ?! ?? x ??! ?! ?! ?! Nasal Bone ?? ! ?? x ??! ?! ?! ?! Lip ?! ?? x ??! ?! ?! ?! Maxilla ?! ?? x ??! ?! ?! ?! Mandible ? ! ?? x ??! ?! ?! ?! Neck ? ! ?! ?! ? x ?! ?! Spine ?! ?! ?! ? x ?! ?!Suboptimal ?transverse spine ?views Lungs ?! ?? x ??! ?! ?! ?! 4 Chamber Hea! ?? x ??! ?! ?! ?! LVOT ? ! ?? x ??! ?! ?! ?! RVOT ? ! ?! ?! ? x ?! ?! 3 Vessel View! ?? x ??! ?! ?! ?! 3 Vessel Trac! ?! ?! ? x ?! ?! Cross-over ?? ! ?? x ??! ?! ?! ?! Ductal Arch ??! ?! ?! ? x ?! ?! Aortic Arch ??! ?! ?! ? x ?! ?! Caval View ?? ! ?! ?! ? x ?! ?! Situs ?! ?? x ??! ?! ?! ?! Diaphragm ?! ?! ?! ? x ?! ?! Stomach ?! ?? x ??! ?! ?! ?! Liver ?! ?! ?! ? x ?! ?! Bowel ?! ?? x ??! ?! ?! ?! Kidneys ?! ?? x ??! ?! ?! ?! Bladder ?! ?? x ??! ?! ?! ?! 3 Vessel Cord! ?? x ??! ?! ?! ?! Cord In! ?? x ??! ?! ?! ?! Upper Extremi! ?? x ??! ?! ?! ?! Hands ?! ?! ?! ?! ?!unremarkable ?left, suboptimal ?right Lower Extremi! ?? x ??! ?! ?! ?! Feet ? ! ?? x ??! ?! ?! ?! External Lizet! ?! ?! ?! ?!Male Placental Cor! ?? x ??! ?! ?! ?! CLINICAL SUMMARY Study Number: 1 ?? A single fetus is seen in variable presentation. ??The measurements today are consistent with appropriate interval growth. ??The RD is based on a prior ultrasound. ??The amniotic fluid volume is within normal limits. ?? The anatomy was limited by position. ?? IMPRESSION: Single, live intrauterine at 19w2d ?? size is within normal limits ?? Amniotic fluid volume: within normal limits ?? Declined transvaginal cervical length ?? No major malformations were seen within the limitations of ultrasound. ?? No overt evidence of cleft lip or clefting of the anterior palate RECOMMEND: Ultrasound in 4 weeks for growth and follow up anatomy as per table above. ?? Thank you for allowing us they opportunity to care for your patient. ?? Chepe Pickens MD <Electronic Signature> ??01/31/2021 01:38pm Katerin Pardo MD [facility] ORDERABLES documented in this encounter Visit Diagnoses Diagnosis Family history of cleft lip- Primary Family history of congenital anomalies Encounter for anatomic survey (HCC) Encounter for anatomic survey Supervision of other high risk pregnancies, second trimester (HCC) 19 weeks gestation of (HCC) state, incidental documented in this encounter
--- OUTSIDE RECORDS SUMMARY | 2024-12-10 08:46 | XMS_ITS | Clinical Summary ---
Author Organization [facility] Address [address] [place] [address] Care Team Providers Care [employer] Assistant Manager Name Role Phone Megan Rock MD Primary Care Provider + Source Comments [facility],non-owned Affiliates and Associated Physician Practices is amultiple site organization consisting of ambulatory clinics and hospital sitesin [place], [place], [place] and [place]. This disclosure is being madepursuant to the Care Everywhere program and may not contain all information available regarding this patient. Last updated 18.[facility] Active Problems Problem Noted Date Diagnosed [...] Health Maintenance Due Date Last Done Comments HIV SCREENING 2012 HEPATITIS C SCREENING 06/22/2015 DTAP/TDAP/TD VACCINES (1 - Tdap) 2016 HEPATITIS B VACCINE (1 of 3 - 19+ 3-dose series) 2016 PAP SMEAR 02/06/2024 02/05/2021 COVID-19 VACCINE (1 - 2023-2 5 season) 2024 INFLUENZA VACCINE (#1) 2024 DEPRESSION SCREENING 11/29/2024 ZOSTER VACCINE (1 of 2) 2047 HIB VACCINE Aged Out No longer eligi ble based on patient's age to complete this topic HPV VACCINE Aged Out No longer eligi ble based on patient's age to complete this topic MENINGOCOCCAL (Group B) VACCINE Aged Out No longer eligible based on patient's age to complete this topic MENINGOCOCCAL VACCINE Aged Out No ed mónica eligible based on patient's age to complete this topic PNEUMOCOCCAL VACCINE Aged Out No long er eligible based on patient's age to complete this topic Care Teams [employer] Assistant Manager Relationship Specialty Start Date End Date Megan Rock MD [address] [place] [address] PCP - General 07/07/21
--- OUTSIDE RECORDS SUMMARY | 2024-12-10 08:46 | XMS_ITS | Encounter Summary ---
Author Organization [facility] Address [address] [place] [address] Care Team Providers Care Mortgage Loan Counselor Name Role Phone Unavailable Primary Care Provider Unavailabl e Reason for Visit * Reason Comments Vaginal Discharge Headache Epistaxis Encounter Details Date Type Department Care Team (Late st Contact Info) Description 05/28/2020 3:30 PM CDT Office Visit [facility] Work Style on Screen [place] [address] [place] [address] Ryann Muniz, ELEMENTARY VOCAL MUSIC TEACHER [address] [facility] [address] [place] [address] Dysuria (Primary Dx); Vaginal discharge; Epistaxis; Tobacco use Social History Tobacco Use Types Packs/Day Years [...] PM CDT documented as of this encounter Last Filed Vital Signs Vital Sign Reading [...] Mass Index 22.24 05/28/2020 3:09 PM CDT documented in this encounter Progress Notes * Ryann Muniz, CHAO - 05/28/2020 3:20 PM CDT HISTORY OF PRESENT ILLNESS Nikia Danielle is a 24 y.o. female who presents for Chief Complaint Patient presents with ??? Vaginal Discharge ??? Headache ??? Epistaxis LMP 05/04/20 lasting for 3 days. 1 week ago noted thin brown vaginal dc, at times pink and purplish at times. Intermittent sharp pain inside of vagina. Has not noticed sores to external vulva. Denies itching. Has a slight burning with urination but unsure, it is a weird feeling. Had a headache over the weekend that lasted 2 days and went away. None today. Picked at lesion in her nose-had 2 episodes of nose bleeds that stopped with pressure and lasted several minutes. Denies personal or family hx of bleeding disorders. Unprotected sex with male partner 05/07/20, off control. No known exposure to STI. Was formerlyon OCP and did not refill it. Has not had a pap smear in the past. Completed HPV vaccination seriesat age 19. Neg home test yesterday. Past Medical History: Diagnosis Date ??? Patient denies relevant medical history No current outpatient medications on file. No current facility-administered medications for this visit. No Known Allergies BP 116/72 (BP Location: Right arm, Patient Position (BP): Sitting, BP Cuff Size: Adult) Pulse 82 Temp 98.2 ??F (36.8 ??C) (Tympanic) Resp 18 Ht 5' 7 (1.702 m) Wt 64.4 kg (142 lb) LMP 05/04/2020 (Exact Date) SpO2 95% BMI 22.24 kg/m?? MEDICAL RECORD UPDATE Past Medical History: Diagnosis Date ??? Patient denies relevant medical history Past Surgical History: Procedure Laterality Date ??? HX CLEFT LIP REPAIR Family History Problem Relation Name Age of Onset ??? No Known Problems Father ??? No Known Problems Mother ??? Lung Cancer Maternal Grandmother ??? Lung Cancer Maternal Grandfather ??? No Known Problems Paternal Grandmother ??? Lung Cancer Paternal Grandfather ??? No Known Problems Half-Brother ??? No Known Problems Half-Brother ??? No Known Problems Half-Brother ??? No Known Problems Half-Brother ??? No Known Problems Half-Sister ??? No Known Problems Half-Sister ??? No Known Problems Half-Sister ??? No Known Problems Half-Sister Current medications and allergies were reviewed and updated in computerized patient record. [id number] - [place], [place] - [address] [facility] [address] Care Providers: No care steamtable worker to display No Patient Care Coordination Note on file. Vital signs/Tobacco use BP 116/72 (BP Location: Right arm, Patient Position (BP): Sitting, BP Cuff Size: Adult) Pulse 82 Temp 98.2 ??F (36.8 ??C) (Tympanic) Resp 18 Ht 5' 7 (1.702 m) Wt 64.4 kg (142 lb) LMP 05/04/2020 (Exact Date) SpO2 95% BMI 22.24 kg/m?? Blood Pressure BP Readings from Last 3 Encounters: 05/28/20 116/72 BMI POC (QM) Body mass index is 22.24 kg/m??. Normal BMI range: 18 & older: > or = 18.5 and < 25 BMI within normal limits The CVD Risk score (D'Agostino, et al., 2008) failed to calculate for the following reasons: The 2008 CVD risk score is only valid for ages 30 to 74 Consider Statins if 10 year risk >7.5-10% Tobacco Use (QM) reports that she has been smoking cigarettes. She has been smoking about 0.50 packs per day. She has never used smokeless tobacco. She was counseled to discontinue tobacco use. DEPRESSION SCREENING (QM) PHQ2: Positive: PHQ-2 score > 2 or PHQ-9 score > 9 PHQ-2 Total: 0 (05/28/20 1500) Her depression screen was normal EXAMINATION REVIEW OF SYSTEMS Review of Systems Constitutional: Negative for chills, fever and malaise/fatigue. HENT: Positive for nosebleeds. Negative for congestion. Respiratory: Negative for cough, sputum production, shortness of breath and wheezing. Cardiovascular: Negative for chest pain. Gastrointestinal: Negative for nausea and vomiting. Musculoskeletal: Negative for myalgias. Skin: Negative for itching and rash. Neurological: Positive for headaches. Negative for dizziness. Psychiatric/Behavioral: The patient is nervous/anxious. Objective PHYSICAL EXAM Physical Exam Constitutional: Appearance: She is well-developed. HENT: Head: Normocephalic and atraumatic. Nose: Nose normal. Comments: Right nare lateral wall - crusted small lesion, abrasion. No bleeding. Eyes: Conjunctiva/sclera: Conjunctivae normal. Cardiovascular: Rate and Rhythm: Normal rate and regular rhythm. Heart sounds: Normal heart sounds, S1 normal and S2 normal. No murmur. No friction rub. No gallop. Pulmonary: Effort: Pulmonary effort is normal. No respiratory distress. Breath sounds: Normal breath sounds. No wheezing or rales. Genitourinary: Exam position: Supine. Pubic Area: No rash or pubic lice. Labia: Right: No rash, tenderness, lesion or injury. Left: No rash, tenderness, lesion or injury. Comments: Neg CMT. Collected pap smear and BV panel. Cervix non friable. Neg for adnexal tendernessor masses. Breast and axillary exam-normal, no tenderness or masses. Cervical nabothian cyst present at 2 oclock. Skin: General: Skin is warm and dry. Neurological: Mental Status: She is alert and oriented to person, place, and time. Results for orders placed or performed in visit on 05/28/20 (from the past 24 hour(s)) POC URINALYSIS DIPSTICK NON AUTOMATED Result Value Ref Range COLOR UA Yellow Pale to Dark Yellow CLARITY UA Clear Clear GLUCOSE UA Negative Negative, Normal BILIRUBIN UA Negative Negative KETONES UA Negative Negative POC SPECIFIC GRAVITY UA 1.005 1.000 - 1.030 BLOOD UA Negative Negative PH UA 8.5 (A) 5.0 - 8.0 PROTEIN UA Negative Negative UROBILINOGEN UA 8.0 (A) <2.0 mg/dL NITRITE UA Negative Negative LEUKOCYTE ESTERASE UA Negative Negative KIT LOT NUMBER [id number] KIT EXPIRATION DATE 03/28/2021 POC , URINE Result Value Ref Range HCG QUAL URINE Negative Negative INTERNAL KIT QC Pass Pass KIT LOT NUMBER [id number] KIT EXPIRATION DATE 08/28/2021 ASSESSMENT and PLAN: Nikia was seen today for vaginal discharge, headache and epistaxis. Diagnoses and all orders for this visit: Dysuria - POC URINALYSIS DIPSTICK NON AUTOMATED Vaginal discharge - POC , URINE; Future - POC , URINE - BACTERIAL VAGINOSIS/VAGINITIS PANEL BASIC; Future - Cancel: GC/CHLAMYDIA, URINE - BACTERIAL VAGINOSIS/VAGINITIS PANEL BASIC - GC/CHLAMYDIA, URINE; Future - GC/CHLAMYDIA, URINE - CERV/VAG CYTO SCREEN PAP W/O HPV; Future - CERV/VAG CYTO SCREEN PAP W/O HPV Epistaxis - CBC WITH DIFFERENTIAL; Future - COMPREHENSIVE METABOLIC PANEL; Future - TSH; Future Tobacco use Normal pelvic exam. Labs sent including pap smear. Preg neg, UA neg except elevated urobiligen, CMPdone. Epitaxis-related to lesion in nare. Minor overall and enc to avoid picking at area. Tobacco use-enc cessation. Call with name of OCP and will refill, discussed Wednesday start. Would like to restart, had no issueswith OCP in the past. documented in this encounter Miscellaneous Notes * Patient Instructions - Ryann Muniz NP - 05/28/2020 3:48 PM CDT Safer Sex: Care Instructions Your Care Instructions Safer sex is a way to reduce your risk of getting an infection spread through sex. It can also helpprevent . Most infections that are spread through sex, also called sexually transmitted infections or STIs, can be cured. But some can decrease your chances of getting if they are not treated early. Others, such as herpes, have no cure. And some, such as HIV, can be deadly. Several products can help you practice safer sex and reduce your chance of STIs. One of the best fannie condom. There are condoms for men and for women. The female condom is a tube of soft plastic witha closed end that is placed deep into the vagina. You can use a special rubber sheet (dental dam) for protection during oral sex. Disposable gloves can keep your hands from touching blood, semen, or o ther body fluids that can carry infections. Remember that control methods such as diaphragms, IUDs, foams, and control pills do notstop you from getting STIs. Follow-up care is a alfonso part of your treatment and safety. Be sure to make and go to all appointments, and call your doctor if you are having problems. It's also a good idea to know your test resultsand keep a list of the medicines you take. How can you care for yourself at home? ?? Think about getting shots to prevent hepatitis A and hepatitis B. These two diseases can be spread through sex. You also can get hepatitis A if you eat infected food. ?? Use condoms or female condoms each time and every time you have sex. ?? Learn the right way to use a male condom: ? Condoms come in several sizes. Make sure you use the right size. A condom that is too small can break easily. A condom that is too big can slip off during sex. Use a new condom each time you have sex. ? Be careful not to poke a hole in the condom when you open the wrapper. ? Squeeze the tip of the condom to keep out air. ? Pull down the loose skin (foreskin) from the head of an uncircumcised penis. ? While squeezing the tip of the condom, unroll it all the way down to the base of the firm penis. ? Never use petroleum jelly (such as Vaseline), grease, hand lotion, baby oil, or anything with oilin it. These products can make holes in the condom. ? After sex, hold the condom on your penis as you remove your penis from your partner. This will keep semen from spilling out of the condom. ?? Learn to use a female condom: ? You can put in a female condom up to 8 hours before sex. ? Squeeze the smaller ring at the closed end and insert it deep into the vagina. The larger ring atthe open end should stay outside the vagina. ? During sex, make sure the penis goes into the condom. ? After the penis is removed, close the open end of the condom by twisting it. Remove the condom. ?? Do not use a female condom and male condom at the same time. ?? Do not have sex with anyone who has symptoms of an STI, such as sores on the genitals or mouth. The herpes virus that causes cold sores can spread to and from the penis and vagina. ?? Do not drink a lot of alcohol or use drugs before sex. This can cause you to let down your guardand not practice safer sex. ?? Having one sex partner (who does not have STIs and does not have sex with anyone else) is a sureway to avoid STIs. ?? Talk to your partner before you have sex. Find out if he or she has or is at risk for any STI. Keep in mind that a person may be able to spread an STI even if he or she does not have symptoms. Youand your partner may want to get an HIV test. You should get tested again 6 months later. Where can you learn more? Go to https://www.X-1.net/patiented Enter B608 in the search box to learn more about Safer Sex: Care Instructions. Current as of: January 24, 2020?Content Version: 12.5 ?? [id number] [employer]. Care instructions adapted under license by your healthcare professional. If you have questions about a medical condition or this instruction, always ask your healthcare professional. These instructions may not represent the values of this healthcare organization. [employer] disclaims any warranty or liability for your use of this information. documented in this encounter Plan of Treatment Scheduled Orders Name Type Priority Associated Diagnoses Orde r Schedule BACTERIAL VAGINOSIS/VAGINITIS PANEL BASIC Microbiology Routine Vaginal discharge Expected: 05/28/2020, Expires: 05/28/2021 documented as of this encounter Procedures Procedure Name Priority Date/Time Associated Diagnosis Comments CERV/VAG CYTO SCREEN PAP W/O HPV Routine 05/28/2020 3:57 PM CDT Vaginal discharge GC/CHLAMYDIA, URINE Routine 05/28/2020 3 :48 PM CDT Vaginal discharge VAGINITIS PANEL, VAL Routine 05/28/2020 3:45 PM CDT TEST IN QUESTION Routine 05/28/2020 3:45 PM CDT POC , URINE Routine 05/28/2020 3:36 PM CDT Vaginal discharge POC URINALYSIS DIPSTICK NON AUTOMATED Routine 05/28/2020 3:35 PM CDT Dysuria documented in this encounter Results * TSH (05/29/2020 2:01 PM CDT) Pathologist [facility] TSH 1.270 0.450 - 4.500 uIU/mL [facility] Blood 05/29/2020 2:01 PM CDT 05/30/2020 Narrative [facility] - 05/31/2020 6:36 AM CDT Performed at: ??01 - [address], [place], [place] ??[id number] Lapeler: Jimy Arellano PhD, Phone: ??[phone] Ryann Muniz NP CHEMISTRY ORDER NE [facility] [phone] * (ABNORMAL) COMPREHENSIVE METABOLIC PANEL (05/29/2020 2:01 PM CDT) Pathologist [facility] GLUCOSE 89 65 - 99 mg/dL [facility] [...] 6:36 AM CDT Performed at: ?? - [facility] [address] ??[id number] Lapeler: Jimy Arellano PhD, Phone: ??[phone] Ryann Muniz ELEMENTARY VOCAL MUSIC TEACHER CHEMISTRY ORDER NE [facility] [phone] * (ABNORMAL) CBC WITH DIFFERENTIAL (05/29/2020 2:01 [...] - 05/31/2020 4:35 AM CDT Performed at: ?? - [facility] ??[id number] Lapeler: iJmy Arellano PhD, Phone: ??[phone] Ryann Muniz NP HEMATOLOGY JENNIFER ELAM [facility] [phone] * CERV/VAG CYTO SCREEN PAP W/O HPV (05/28/2020 3:57 PM CDT) DIAGNOSIS (PAP): Comment [facility] Comment:NEGATIVE FOR INTRAEP ITHELIAL LESION OR MALIGNANCY. ADEQUACY: Comment [facility] Comment: Satisfactory for evaluation. ??Endocervical and/or squamous metaplastic cells (endocervical component) are present. CLINICIAN PROVIDED ICD10 Comment [facility] Comment:N89.8 PERFORMED BY (PAP): Comment [facility] Comment:Tin Frazier [employer] hnologist (ASCP) RESULT (PAP): . [facility] [...] false-positive and false-negative reports do occur. CYTOLOGY DEEP FAT FRY COOK METHODOLOGY Comment [facility] Comment: This liquid based ThinPrep(R) pap test was screened with the use of an image guided system. Genital SWAB OF ENDOCERVIX / Unknown 05/28/2020 3:57 PM CDT 05/28/2020 Narrative [facility] - 06/03/2020 12:35 PM CDT Performed at: ??01 - [address] ??[id number] Lapeler: Olga Salas MD, Phone: ??[phone] Specimen Comment: No. of containers..01 ThinPrep Vial Ryann Muniz NP PATHOLOGY/CYTOL OGY ORDERABLES [facility] [phone] * GC/CHLAMYDIA, URINE (05/28/2020 3:48 PM CDT) CHLAMYDIA TRACHOMATIS DNA Indeterminate Negative [facility] Comment: The initial result for this specimen was a weak positive, but a repeat test was negative, with a final interpretation of indeterminate. The CDC suggests clinicians consider treating for presumptive infection or obtain a second specimen for repeat testing, depending on such factors as individual risk and local population prevalence. NEISSERIA GONORRHOEAE VAL Negative Negative [facility] Urine URINE SPECIMEN / Unknown 05/28/2020 3:48 PM CDT 05/29/2020 Narrative [facility] - 06/04/2020 3:35 AM CDT Performed at: ??01 - [address] ??[id number] Lapeler: Olga Salas MD, Phone: ??[phone] Ryann Muniz NP URINE ORDERABLE S COM [facility] [phone] * (ABNORMAL) VAGINITIS PANEL, VAL (05/28/2020 3:45 PM CDT) BV VAL - ATOPOBIUM VAGINAE Low - 0 Score [facility] BV VAL - BVAB 2 Low - 0 Score [facility] BV VAL - MEGASPHAERA SPECIES High - 2(A) Score [facility] Comment: Calculate total score by adding the 3 individual bacterial vaginosis (BV) marker scores together. ??Total score is interpreted as follows: Total score 0-1: Indicates the absence of BV. Total score ?? 2: Indeterminate for BV. Additional clinical ? data should be evaluated to establish a ? diagnosis. Total score 3-6: Indicates the presence of BV. This test was developed and its performance characteristics determined by [facility]. ??It has not been cleared or approved by the Food and Drug Administration. ??The FDA has determined that such clearance or approval is not necessary. SABAS ALBICANS VAL Positive(A) Negative [facility] SABAS GLABRATA VAL Negative Negative [facility] TRICH VAG BY VAL Negative Negative [facility] 05/28/2020 3:45 PM CDT 05/29/2020 [facility]ative [facility] - 06/12/2020 6:36 AM CDT Test(s) 807375-Ezymryz albicans, VAL; 439591-Tvikids glabrata, VAL was developed and its performance characteristics determined by [facility]. It has not been cleared or approved by the Food and Drug Administration. Performed at: ??01 - [address] ??[id number] Lapeler: Daryn Cabrera MD, Phone: ??[phone] Ryann Muniz NP MICRO - GEN ORD ERABLES COM [facility] [phone] * TEST IN QUESTION (05/28/2020 3:45 PM CDT) TEST INFORMATION Comment [facility] Comment: Test Code Change Test Code Change Please note that the Microbiology test code was changed to reflect the specimen source or transport received. 05/28/2020 3:45 PM CDT 05/29/2020 [facility]ative [facility] - 06/07/2020 3:35 AM CDT Performed at: ??[facility] [address] [place], [place] ??[id number] Lapeler: Jimy Arellano PhD, Phone: ??[phone] Ryann Muniz NP CHEMISTRY ORDER NE [facility] [phone] * POC , URINE (05/28/2020 3:36 PM CDT) HCG QUAL URINE Negative Negative [facility] KIT QC Pass Pass [facility] KIT LOT NUMBER POC [id number] [facility] KIT EXPIRATION DATE POC 08/28/2021 [facility] Urine 05/28/2020 3:36 PM CDT Ryann Muniz NP POINT OF CARE T ESTING Performing Organization Address City/[facility]/ZIP Co de Phone Number [facility] CLIA# [id number] [address] [place] [address] * (ABNORMAL) POC URINALYSIS DIPSTICK NON AUTOMATED (05/28/2020 3:35 PM CDT) COLOR UA Yellow Pale to Dark Yellow [facility] CLARITY UA Clear Clear [facility] GLUCOSE UA Negative Negative, Normal [facility] BILIRUBIN UA Negative Negative [facility] KETONES UA Negative Negative [facility] [place] SPECIFIC GRAVITY UA POC 1.005 1.000 - 1.030 [facility] BLOOD UA Negative Negative [facility] PH UA 8.5(A) 5.0 - 8.0 [facility] PROTEIN UA Negative Negative [facility] UROBILINOGEN UA 8.0(A) <2.0 mg/dL [facility] NITRITE UA Negative Negative [facility] LEUKOCYTE ESTERASE UA Negative Negative [facility] KIT LOT NUMBER POC [id number] [facility] [place] KIT EXPIRATION DATE POC 03/28/2021 [facility] Urine 05/28/2020 3:35 PM CDT Ryann Muniz ELEMENTARY VOCAL MUSIC TEACHER POINT OF CARE Eileen FLORES [facility] Organization Address City/State/[facility] Co de Phone Number [facility]# [id number] [address] [place] [address] documented in this encounter Visit Diagnoses Diagnosis Dysuria- Primary Vaginal discharge Leukorrhea, not specified as infective Epistaxis Tobacco use Tobacco use disorder Epistaxis documented in this encounter
--- OUTSIDE RECORDS SUMMARY | 2024-12-10 08:46 | XMS_ITS | Referral Summary ---
Author Organization [facility] Address [address] [place] [address] Care Team Providers Care Central Office Supervisor Name Role Phone Megan Rock MD Primary Care Provider + Source Comments [facility],non-[facility] Affiliates and Associated Physician Practices is amultiple site organization consisting of ambulatory clinics and hospital sitesin [place], [place] and [place]. This disclosure is being madepursuant to the Care Everywhere program and may not contain all information available regarding this patient. Last updated 18.[facility] Active Problems Problem Noted Date Diagnosed Date Family history of cleft lip 01/30/2021 Encounter for anatomic survey 01/30/2021 Social History Tobacco Use Types Packs/Day Years Used Date Smoking Tobacco: Never Assessed Sex and Gender Information Value Date Recorded Sex Assigned at Not on file Gender Identity Not on file Sexual Orientation Not on file Plan of Treatment Not on file Care Teams Central Office Supervisor Relationship Specialty Start Date End Date Megan Rock MD [address] [place] [address] PCP - General 07/07/21
== END 2024-12-03 21:56 | disposition home or self-care (01) ==
LOC: ANHED 18:37 → ANHLDR 19:36
PROVIDERS: Admitting Provider Obstetrics & Gynecology; Emergency Provider Physician Assistant; PCP Obstetrics & Gynecology; Visit Provider Obstetrics & Gynecology
DX: O03.9 Complete or unspecified spontaneous abortion without complication (principal)
CPT/HCPCS: 36415; 80053; 84702; 85025; 85461; 85610; 85730; 86850; 86900; 86901; 88305; 99285; A9270; G0378; G0379